=== PATIENT | female | born 1955 | race Caucasian/White ===

== ENCOUNTER 2016-11-05 03:23 | Inpatient (IN) | payer OTHER ==
[2016-11-05] VITALS (7 sets, daily range): BP systolic 118–176; BP diastolic 55–86
[~2016-11-05] VITALS: Ht 165.1 cm; Wt 71.7 kg
[~2016-11-05 03:23] MED LIST: APAP/HYDROCODON1 T46 PO; APAP/OXYCODONE1 TA2 PO; CEFEPIME2 GM IV; CEFEPIME2 GM PO; CUBICIN500 MG IV; DOXYCYCLINE HY100 M5 PO; GLUCOPHAGE850 MG PO; IBUPROFEN 200200 MG PO; KEFLEX125 MG/5 M PO; KEFLEX500 MG PO; LANTUS100 U/ML SC; METFORMIN850 MG PO; NOVOLOG MIX 70/33 ML SC; NOVOLOG1 UNIT/0.0 SC; NOVOLOG10 ML IV; PERCOCET 325 MG1 TA2 PO; PERCOCET 325 MG1 TA3 PO; PRAVACHOL40 MG PO; PRINIVIL20 MG PO; PRINIVIL5 MG PO; PROTONIX40 MG PO; SALINE NASAL M126 ML NS; TOPROL XL100 MG PO; TOPROL XL50 MG PO; ULTRAM50 MG PO; VANCOCIN1000 MG/25 IV; ZOFRAN4 MG PO; ZYVOX600 MG PO
[2016-11-05] MEDS ORDERED: TRAMADOL HCL50 MG PO ×2 (03:29→09:34)
[2016-11-05] MEDS ORDERED: MELOXICAM7.5 MG PO (03:30)
[2016-11-05] MEDS ORDERED: FENOFIBRATE160 MG PO (03:30)
[2016-11-05 04:09] LABS: BASO % 0.4 % (0.0-1.0); EOS # 0.1 10*3/uL (0.0-0.4); EOS % 1.6 % (1.0-4.0); HEMATOCRIT 40.2 % (37.0-47.0); HEMOGLOBIN 13.5 g/dl (12.0-16.0); LYMPH # 2.7 10*3/uL (1.3-4.4); LYMPH % 38.5 % (27.0-41.0); MEAN CELL VOLUME 88.7 fl (81.0-99.0); MEAN CORPUSCULAR HGB 29.8 pg (27.0-31.0); MEAN CORPUSCULAR HGB CONC 33.6 g/dl (33.0-37.0); MEAN PLATELET VOLUME 9.7 fl (9.6-12.3); MONO # 0.4 10*3/uL (0.1-1.0); MONO % 6.1 % (3.0-9.0); NEUT # 3.7 10*3/uL (2.3-7.9); NEUT % 53.3 % (47.0-73.0); PLATELET COUNT AUTOMATED 354 10*3/uL (130-400); RED BLOOD COUNT 4.53 10*6/uL (4.10-5.10); RED CELL DISTRI WIDTH 14.3 % (0-14.5); WHITE BLOOD COUNT 6.9 10*3/uL (4.8-10.8)
[2016-11-05 04:18] LABS: PROTHROMBIN TIME 10.2 SECONDS (9.0-12.4)
[2016-11-05 04:36] LABS: ALKALINE PHOSPHATASE 61 U/L (45-117); BILIRUBIN, TOTAL 0.2 mg/dl (0.2-1.0); BUN 36 mg/dl (7-24); C-REACTIVE PROTEIN < 0.29 MG/DL (0-0.3); CARBON DIOXIDE 26 mmol/L (21-32); CHLORIDE 102 mmol/L (98-107); EST GLOM FILT AFRICAN AMERICAN 36 ml/min; GLUCOSE 246 mg/dL (65-99); MAGNESIUM 2.2 mg/dL (1.5-2.1); POTASSIUM 4.2 mmol/L (3.5-5.1); SGOT/AST 13 IU/L (3-35); SGPT/ALT 19 U/L (12-78); SODIUM 139 mmol/L (136-145); TOTAL PROTEIN 8.6 gm/dL (6.4-8.2); TROPONIN I < 0.015 ng/ml (<0.045)
[2016-11-05] MEDS ORDERED: PROTONIX40 MG PO (09:34)
[2016-11-05] MEDS ORDERED: HYDR12.5C PO (09:35)
[2016-11-05 10:06] LABS: BILIRUBIN NEGATIVE (NEGATIVE); BLOOD NEGATIVE (NEGATIVE); CLARITY CLEAR (CLEAR); COLOR STRAW (YELLOW); GLUCOSE 2+ (NEGATIVE); KETONE NEGATIVE (NEGATIVE); LEUKO ESTERASE NEGATIVE (NEGATIVE); NITRITE NEGATIVE (NEGATIVE); PROTEIN NEGATIVE (NEGATIVE); UROBILINOGEN 0.2 E.U./dl (0.2-1.0)
[2016-11-05 10:27] LABS: EPITHELIAL CELLS 0-2; URINE REFLEX COMMENT NO (NO)
[2016-11-05 12:32] LABS: TROPONIN I < 0.015 ng/ml (<0.045)
[2016-11-06] VITALS: BP 118/62
[2016-11-06 04:00] VITALS: BP 120/62
[2016-11-06 06:46] LABS: BASO % 0.7 % (0.0-1.0); EOS # 0.1 10*3/uL (0.0-0.4); EOS % 2.2 % (1.0-4.0); HEMATOCRIT 35.8 % (37.0-47.0); HEMOGLOBIN 11.8 g/dl (12.0-16.0); LYMPH % 45.3 % (27.0-41.0); MEAN CELL VOLUME 89.9 fl (81.0-99.0); MEAN CORPUSCULAR HGB 29.6 pg (27.0-31.0); MEAN PLATELET VOLUME 9.6 fl (9.6-12.3); MONO # 0.3 10*3/uL (0.1-1.0); MONO % 5.6 % (3.0-9.0); NEUT # 2.1 10*3/uL (2.3-7.9); PLATELET COUNT AUTOMATED 299 10*3/uL (130-400); RED BLOOD COUNT 3.98 10*6/uL (4.10-5.10); RED CELL DISTRI WIDTH 14.1 % (0-14.5); WHITE BLOOD COUNT 4.5 10*3/uL (4.8-10.8)
[2016-11-06 07:31] LABS: PROTHROMBIN TIME 10.8 SECONDS (9.0-12.4)
[2016-11-06 07:33] LABS: ALBUMIN 3.4 gm/dl (3.1-4.5); BILIRUBIN, TOTAL 0.4 mg/dl (0.2-1.0); MAGNESIUM 1.7 mg/dL (1.5-2.1); PHOSPHOROUS 2.4 mg/dL (2.5-4.9); POTASSIUM 4.1 mmol/L (3.5-5.1); TOTAL PROTEIN 7.1 gm/dL (6.4-8.2)
[2016-11-06 08:04] LABS: FREE T4 0.83 ng/dl (0.76-1.46); THYROID STIM HORMONE (HS) 0.613 uIU/ml (0.358-4.75)
[2016-11-06 08:52] LABS: HEMOGLOBIN A1c 7.5 % (4.8-5.6)
[2016-11-06 10:49] LABS: FOLIC ACID 12.54 ng/mL (>5.38); VITAMIN D, 25-HYDROXY 12.3 ng/mL (30-100)
== END 2016-11-06 08:02 | disposition left against medical advice (07) | DRG 438 ==
LOC: ED 03:23 → 5E 05:50 → EDHOLD 05:50 → 5E 05:58
PROVIDERS: Emergency Medicine Emergency Medical Services; Family Medicine
DX: K85.90 Acute pancreatitis without necrosis or infection, unspecified (principal); N17.0 Acute kidney failure with tubular necrosis; E11.65 Type 2 diabetes mellitus with hyperglycemia; E83.41 Hypermagnesemia; I10 Essential (primary) hypertension; R00.0 Tachycardia, unspecified; E78.1 Pure hyperglyceridemia; Z53.21 Procedure and treatment not carried out due to patient leaving prior to being seen by health care provider; G89.29 Other chronic pain; F17.200 Nicotine dependence, unspecified, uncomplicated; Z98.51 Tubal ligation status; Z82.49 Family history of ischemic heart disease and other diseases of the circulatory system; Z90.49 Acquired absence of other specified parts of digestive tract; Z83.3 Family history of diabetes mellitus; Z80.9 Family history of malignant neoplasm, unspecified; Z88.6 Allergy status to analgesic agent; Z79.4 Long term (current) use of insulin; Z79.84 Long term (current) use of oral hypoglycemic drugs; Z79.899 Other long term (current) drug therapy; Z71.6 Tobacco abuse counseling

== ENCOUNTER 2016-12-03 09:07 | Emergency (ER) | payer OTHER ==
[~2016-12-03 09:07] MED LIST changes: +FENOFIBRATE160 MG PO; +HYDR12.5C PO; +MELOXICAM7.5 MG PO; +TRAMADOL HCL50 MG PO
[2016-12-03] MEDS ORDERED: PENICILLIN VK500 MG PO (09:13)
[2016-12-03] MEDS ORDERED: LIDOCAINE HCL100 M1 MM (09:13)
[2016-12-03] MEDS ORDERED: Peridex 473 ML473 ML PO (09:13)
== END 2016-12-03 11:07 | disposition home or self-care (01) ==
LOC: ED 09:07
DX: K02.9 Dental caries, unspecified (principal); R03.0 Elevated blood-pressure reading, without diagnosis of hypertension; F17.200 Nicotine dependence, unspecified, uncomplicated; E11.9 Type 2 diabetes mellitus without complications; I10 Essential (primary) hypertension; Z90.49 Acquired absence of other specified parts of digestive tract; Z88.6 Allergy status to analgesic agent; Z79.4 Long term (current) use of insulin; Z79.899 Other long term (current) drug therapy

== ENCOUNTER 2017-01-31 15:10 | Inpatient (IN) | payer OTHER ==
[~2017-01-31] VITALS: Ht 165.1 cm; Wt 65.8 kg
--- NOTE | ~2017-01-31 | O ---
[place], [place] OPERATIVE NOTE NAME: PRITESH SO UNIT #: [id number] ROOM: 426 DOCTOR: HEBER CONNORS DPM BIRTHDATE: [birth year] DOS: 02/02/2017 PREOPERATIVE DIAGNOSIS: Abscess. Possible osteomyelitis of the left plantar foot. POSTOPERATIVE DIAGNOSIS: Abscess. Possible osteomyelitis of the left plantar foot. Pending pathology. PROCEDURE: Incision and drainage of plantar left foot with bone biopsy. SURGEON: Heber Connors DPM EDGE STAINER MACHINE: None. ANESTHESIA: LMAC. BLOOD LOSS: Approximately 5 mL. PACKING: One inch plain packing. PROCEDURE IN DETAIL: The patient was brought to the operating room, placed in the operating table in supine position. Anesthesia was administered per Anesthesia Department. Local infiltration of 10 mL of 0.5% Marcaine plain was utilized for local block. The left foot was prepped and draped in usual aseptic manner. There was an ulceration noted to the plantar lateral midfoot. It was noted to track down to bone. A [place] elevator was utilized to follow the tracking of the abscess which was then incised down to bone with a 15 blade. The incision was approximately 6 cm in length. The necrotic nonviable tissue was debrided with tissue nippers. There was plantar flexed bone palpable consistent with fourth metatarsal base, lateral cuneiform and cuboid which radiographically showed evidence of breakdown consistent with Charcot arthropathy with plantar flexion and displacement. A Jamshidi needle was utilized to resect bone which was sent for bone biopsy and bone cultures including Gram stain, aerobic, anaerobic, acid fast and fungal cultures. The same was also performed with separate culture of the soft tissue. The area was further debrided with a rongeur to debride sharp edges of the bone and the necrotic nonviable tissue was also excised. Copious irrigation was performed with sterile saline. The area was packed with 1 inch plain packing with wet-to-dry dressing consisting of 4 x 4s, ABD pads, Kerlix and Ernst bandage. The patient will return to nursing unit after clearance by Anesthesia. Resume previous orders. Antibiotics per Infectious Disease and we will follow the patient tomorrow for followup. The patient tolerated the procedure and anesthesia well and left the OR with vital signs stable, neurovascular status intact. [place], [place] OPERATIVE NOTE NAME: PRITESH SO UNIT #: [id number] ROOM: 426 DOCTOR: HEBER CONNORS DPM BIRTHDATE: [birth year] HEBER CONNORS DPM CM:OPRECORD:OPERATIVE NOTE [phone] HEBER CONNORS DPM 02/03/1746 interface
--- NOTE | ~2017-01-31 | PR ---
[place], [place] PROGRESS NOTE [id number] UNIT #: [id number] ROOM: [facility] DOCTOR: DAYANA CONNORS DPM BIRTHDATE: [birth year] DOS: 02/04/2017 SUBJECTIVE: The patient was seen in followup post I and D of abscess, left foot. The patient is resting comfortably in bed, awake, alert and well oriented. The patient is having less pain to the foot. OBJECTIVE: The dressing is intact. No breakthrough bleeding. Evaluation and internal dressing reveals no further bleeding noted. The Gelfoam packing is intact. Cap refill time is less than one second to all digits of the left foot. ASSESSMENT: Postop left foot. PLAN: Dressing will be kept intact today and will be changed tomorrow by Dr. Montiel. Discussed with the patient upon discharge, we will set her up with Dr. Campa at the wound care center for possible hyperbaric oxygen treatment, wound management and I discussed with the patient, we need to offload her Charcot arthropathy deformity of the plantar foot. Therefore, the patient may need a cow creek or torch walker. I will discuss the case with Dr. Campa upon discharge. Antibiotics will be per infectious disease. DAYANA CONNORS DPM CM:SKYLAR [id number] DAYANA CONNORS DPM 02/04/17 1518 interface
--- NOTE | ~2017-01-31 | PR ---
[place], [place] PROGRESS NOTE NAME: PRITESH SO UNIT #: [id number] ROOM: [facility] DOCTOR: MOLLY DE SOUZA DPM BIRTHDATE: [birth year] DOS: 02/05/2017 SUBJECTIVE: The patient seen status post I and D of abscess, plantar left foot. The patient is a longstanding diabetic, has had multiple foot issues over the years, multiple surgeries. The patient has no complaints. OBJECTIVE: Dressing is taken down, but the packing is not removed. Minimal bleeding is noted on the dressing, but there is no active bleeding, no significant bleeding at this time. There is no surrounding edema or erythema. There is no drainage or malodor. Cap refill time is intact to all digits. ASSESSMENT: Postop left foot. PLAN: The dressing was changed today, kept the packing intact. Discussed with the patient is okay to be discharged from Podiatry standpoint. She will follow up at the wound care center with Dr. Campa for evaluation and treatment. Right now her foot is doing well. We will continue to see her while she is in-house and then she will follow up at the Wound Care Center on discharge. MOLLY DE SOUZA DPM CM:SKYLAR [id number] MOLLY DE SOUZA DPM 02/05/17 1306 interface
--- NOTE | ~2017-01-31 | CON ---
[place], [place] REPORT OF CONSULTATION NAME: PRITESH SO UNIT #: [id number] ROOM: 426 DOCTOR: DAYANA CONNORS DPM BIRTHDATE: [birth year] DOS: 02/01/2017 HISTORY OF PRESENT ILLNESS: The patient presents a 61-year-old female with chief complaint of an ulcer on the plantar aspect of the left foot. We have treated the patient multiple times over the years. She has had multiple foot infections previously. The patient states that over the past week, the pain increased in her foot and started to drain. The patient was subsequently admitted. PAST MEDICAL HISTORY: Acute kidney failure with tubular necrosis, acute osteomyelitis, left foot; Charcot foot secondary to diabetes; hyperkalemia; hyponatremia; protein-calorie malnutrition; moderate sepsis with acute organ dysfunction; vitamin B deficiency; pancreatitis; type 2 diabetes; hypertension; hyperglyceridemia; incidental lung nodule; tobacco abuse counseling. PAST SURGICAL HISTORY: Left foot, tubal ligation, appendectomy, tonsillectomy. SOCIAL HISTORY: Tobacco abuse. Denies illicit drug use or alcohol. FAMILY HISTORY: Mother had a history of hypertension, diabetes, and leukemia. Brother, diabetes and CAD. Son, cerebral palsy. ALLERGIES: IBUPROFEN. LOWER EXTREMITY EXAMINATION: Pedal pulses are palpable, but there is decreased hair growth. Decreased epicritic sensations bilateral. There is an ulceration to the plantar left foot with weeping ulceration noted. The ulceration is noted to track to bone. There appears to be no acute drainable abscess, but again, weeping and drainage is noted. The results of the patient's left foot MRI revealed small ulcerations central plantar aspect of the mid foot with subjacent sinus tract extending deeply to mid foot bones. There is relative intense reactive marrow edema involving the lateral cuneiform, adjacent cuboid and proximal fourth metatarsal suspicious for osteomyelitis involvement. There is advanced neuropathic changes of the mid foot noted consistent with Charcot arthropathy, diffuse nonspecific edema of the intrinsic foot musculature as well as subcutaneous edema. No discrete fluid collection to suggest abscess. ASSESSMENT: Osteomyelitis infection, left foot; possible underlying abscess; diabetes; diabetic neuropathy. PLAN: Evaluation and management. Discussed with the patient treatment options in detail. Recommended surgical incision and drainage with bone biopsy of the plantar left foot, which is scheduled for noon tomorrow. The patient will be n.p.o. after midnight. Order for Bactroban dressing. Also, consent for surgery. Discussed the advantages, disadvantages of the procedure. The patient is well aware of the risks and complications and the patient is aware she will undergo potentially 6 weeks of IV antibiotic treatment and we will also consult [place], [place] REPORT OF CONSULTATION NAME: PRITESH SO UNIT #: [id number] ROOM: 426 DOCTOR: DAYANA CONNORS DPM BIRTHDATE: [birth year] for postoperative wound management and possible hyperbaric oxygen treatment. DAYANA CONNORS DPM CM:CONSTR:REPORT OF CONSULTATION 1616 02/01/17 2320 interface
--- NOTE | ~2017-01-31 | PR ---
[place], [place] PROGRESS NOTE [facility]: [id number] UNIT #: [id number] ROOM: 401 DOCTOR: DAYANA CONNORS DPM BIRTHDATE: [birth year] DOS: 02/03/2017 SUBJECTIVE: The patient was seen post I and D of abscess, left plantar foot. OBJECTIVE: Upon removal of the dressing and packing, there were no signs of purulent drainage or foul odor; however, bleeding started with arterial flow and pumping. Pressure was applied multiple times along with topical thrombin applied and Gelfoam. The bleeding did not stop from a small artery, subsequently was sutured with 3-0 Vicryl in simple interrupted manner. The bleeding was noted to stop at that point. The patient had approximately 200cc of bleeding. Blood loss noted, however. ASSESSMENT: Postoperative left foot. PLAN: Evaluation and management. Suture was utilized to stop an arterial bleed at the end of postop wound after removal of the dressing. The area was packed with 4 x 4s, Kerlix, ABD and Ernst bandages. The patient became very well during the procedure and the rapid response team was called in. H and H is ordered and Internal Medicine is taking care the patient for possible vague reaction due to blood loss or hypoglycemia. The patient was stabilized before leaving the room and the patient will be seen tomorrow for postoperative followup. DAYANA CONNORS DPM CM:PNTRANS [id number] DAYANA CONNORS DPM 02/06/17 0636 interface
[~2017-01-31 15:10] MED LIST changes: +LIDOCAINE HCL100 M1 MM; +PENICILLIN VK500 MG PO; +Peridex 473 ML473 ML PO
[2017-01-31 15:15] VITALS: BP 127/77
[2017-01-31] MEDS ORDERED: TRAMADOL HCL50 MG PO (15:43)
[2017-01-31 15:59] LABS: BASO % 0.2 % (0.0-1.0); EOS % 0.1 % (1.0-4.0); HEMATOCRIT 38.3 % (37.0-47.0); HEMOGLOBIN 12.8 g/dl (12.0-16.0); LYMPH # 1.2 10*3/uL (1.3-4.4); LYMPH % 9.8 % (27.0-41.0); MEAN CELL VOLUME 89.3 fl (81.0-99.0); MEAN CORPUSCULAR HGB 29.8 pg (27.0-31.0); MEAN CORPUSCULAR HGB CONC 33.4 g/dl (33.0-37.0); MEAN PLATELET VOLUME 8.9 fl (9.6-12.3); MONO # 0.7 10*3/uL (0.1-1.0); MONO % 5.4 % (3.0-9.0); NEUT # 10.3 10*3/uL (2.3-7.9); NEUT % 84.2 % (47.0-73.0); PLATELET COUNT AUTOMATED 509 10*3/uL (130-400); RED BLOOD COUNT 4.29 10*6/uL (4.10-5.10); RED CELL DISTRI WIDTH 12.4 % (0-14.5); WHITE BLOOD COUNT 12.2 10*3/uL (4.8-10.8)
[2017-01-31 16:13] LABS: ALBUMIN 3.6 gm/dl (3.1-4.5); BILIRUBIN, TOTAL 0.3 mg/dl (0.2-1.0); POTASSIUM 5.3 mmol/L (3.5-5.1); TOTAL PROTEIN 9.4 gm/dL (6.4-8.2)
[2017-01-31 17:23] VITALS: BP 124/80
[2017-01-31 18:13] VITALS: BP 150/100
[2017-01-31 20:00] VITALS: BP 119/65
[2017-02-01] VITALS: BP 128/49
[2017-02-01 05:16] LABS: ALBUMIN 2.9 gm/dl (3.1-4.5); BILIRUBIN, TOTAL 0.4 mg/dl (0.2-1.0); MAGNESIUM 1.9 mg/dL (1.5-2.1); PHOSPHOROUS 3.3 mg/dL (2.5-4.9); POTASSIUM 4.5 mmol/L (3.5-5.1); TOTAL PROTEIN 7.9 gm/dL (6.4-8.2)
[2017-02-01 05:20] LABS: THYROID STIM HORMONE (HS) 0.677 uIU/ml (0.358-4.75)
[2017-02-01 06:07] LABS: BASO % 0.3 % (0.0-1.0); EOS # 0.1 10*3/uL (0.0-0.4); EOS % 0.9 % (1.0-4.0); HEMATOCRIT 35.8 % (37.0-47.0); HEMOGLOBIN 11.5 g/dl (12.0-16.0); LYMPH # 1.9 10*3/uL (1.3-4.4); LYMPH % 25.6 % (27.0-41.0); MEAN CELL VOLUME 91.1 fl (81.0-99.0); MEAN CORPUSCULAR HGB 29.3 pg (27.0-31.0); MEAN CORPUSCULAR HGB CONC 32.1 g/dl (33.0-37.0); MEAN PLATELET VOLUME 9.1 fl (9.6-12.3); MONO # 0.6 10*3/uL (0.1-1.0); MONO % 8.6 % (3.0-9.0); NEUT # 4.8 10*3/uL (2.3-7.9); NEUT % 64.3 % (47.0-73.0); PLATELET COUNT AUTOMATED 455 10*3/uL (130-400); RED BLOOD COUNT 3.93 10*6/uL (4.10-5.10); RED CELL DISTRI WIDTH 12.6 % (0-14.5); WHITE BLOOD COUNT 7.5 10*3/uL (4.8-10.8)
[2017-02-01 06:12] LABS: HEMOGLOBIN A1c 8.7 % (4.8-5.6)
[2017-02-01 06:18] LABS: PROTHROMBIN TIME 10.3 SECONDS (9.0-12.4)
[2017-02-01 06:47] LABS: FOLIC ACID > 24.00 ng/mL (>5.38)
[2017-02-01 08:00] VITALS: BP 116/53
[2017-02-01 12:00] VITALS: BP 133/52
[2017-02-01 16:00] VITALS: BP 128/86
[2017-02-01 18:29] LABS: BILIRUBIN NEGATIVE (NEGATIVE); BLOOD NEGATIVE (NEGATIVE); CLARITY CLEAR (CLEAR); COLOR YELLOW (YELLOW); GLUCOSE 2+ (NEGATIVE); KETONE NEGATIVE (NEGATIVE); LEUKO ESTERASE NEGATIVE (NEGATIVE); NITRITE NEGATIVE (NEGATIVE); PROTEIN NEGATIVE (NEGATIVE); UROBILINOGEN 0.2 E.U./dl (0.2-1.0)
[2017-02-01 18:59] LABS: RBC 0-2 rbc/hpf (0-2); URINE REFLEX COMMENT NO (NO); WBC 0-2 wbc/hpf (0-5)
[2017-02-01 20:00] VITALS: BP 109/52
[2017-02-02] VITALS (9 sets, daily range): BP systolic 101–151; BP diastolic 49–73
[2017-02-02 06:31] LABS: BASO % 0.2 % (0.0-1.0); EOS # 0.2 10*3/uL (0.0-0.4); EOS % 2.7 % (1.0-4.0); HEMATOCRIT 30.5 % (37.0-47.0); HEMOGLOBIN 10.1 g/dl (12.0-16.0); LYMPH # 2.2 10*3/uL (1.3-4.4); LYMPH % 39.3 % (27.0-41.0); MEAN CELL VOLUME 89.7 fl (81.0-99.0); MEAN CORPUSCULAR HGB 29.7 pg (27.0-31.0); MEAN CORPUSCULAR HGB CONC 33.1 g/dl (33.0-37.0); MEAN PLATELET VOLUME 8.7 fl (9.6-12.3); MONO # 0.4 10*3/uL (0.1-1.0); MONO % 7.9 % (3.0-9.0); NEUT # 2.8 10*3/uL (2.3-7.9); NEUT % 49.7 % (47.0-73.0); PLATELET COUNT AUTOMATED 356 10*3/uL (130-400); RED CELL DISTRI WIDTH 12.3 % (0-14.5); WHITE BLOOD COUNT 5.6 10*3/uL (4.8-10.8)
[2017-02-02 07:11] LABS: ALBUMIN 2.4 gm/dl (3.1-4.5); POTASSIUM 4.5 mmol/L (3.5-5.1)
[2017-02-02 07:15] LABS: BILIRUBIN, TOTAL 0.2 mg/dl (0.2-1.0)
[2017-02-03] VITALS (9 sets, daily range): BP systolic 79–138; BP diastolic 47–78
[2017-02-03 06:23] LABS: BASO % 0.2 % (0.0-1.0); EOS # 0.2 10*3/uL (0.0-0.4); EOS % 2.4 % (1.0-4.0); HEMATOCRIT 29.5 % (37.0-47.0); HEMOGLOBIN 9.5 g/dl (12.0-16.0); LYMPH # 2.1 10*3/uL (1.3-4.4); MEAN CELL VOLUME 89.4 fl (81.0-99.0); MEAN CORPUSCULAR HGB 28.8 pg (27.0-31.0); MEAN CORPUSCULAR HGB CONC 32.2 g/dl (33.0-37.0); MEAN PLATELET VOLUME 8.5 fl (9.6-12.3); MONO # 0.4 10*3/uL (0.1-1.0); MONO % 6.7 % (3.0-9.0); NEUT # 3.5 10*3/uL (2.3-7.9); NEUT % 56.2 % (47.0-73.0); PLATELET COUNT AUTOMATED 336 10*3/uL (130-400); RED CELL DISTRI WIDTH 12.1 % (0-14.5); WHITE BLOOD COUNT 6.1 10*3/uL (4.8-10.8)
[2017-02-03 06:56] LABS: ALBUMIN 2.4 gm/dl (3.1-4.5); BILIRUBIN, TOTAL 0.2 mg/dl (0.2-1.0); POTASSIUM 4.6 mmol/L (3.5-5.1); TOTAL PROTEIN 6.8 gm/dL (6.4-8.2)
[2017-02-03 11:39] LABS: BASO % 0.1 % (0.0-1.0); IG # 0.1 10*3/uL (0.0-0.1); RED CELL DISTRI WIDTH 12.2 % (0-14.5)
[2017-02-03 11:44] LABS: EOS # 0.1 10*3/uL (0.0-0.4); EOS % 1.4 % (1.0-4.0); LYMPH # 2.7 10*3/uL (1.3-4.4); LYMPH % 38.1 % (27.0-41.0); MEAN CORPUSCULAR HGB 29.9 pg (27.0-31.0); MEAN CORPUSCULAR HGB CONC 32.3 g/dl (33.0-37.0); MEAN PLATELET VOLUME 8.9 fl (9.6-12.3); MONO # 0.4 10*3/uL (0.1-1.0); MONO % 5.2 % (3.0-9.0); NEUT # 3.9 10*3/uL (2.3-7.9); NEUT % 54.5 % (47.0-73.0); PLATELET COUNT AUTOMATED 326 10*3/uL (130-400); RED BLOOD COUNT 2.14 10*6/uL (4.10-5.10); WHITE BLOOD COUNT 7.1 10*3/uL (4.8-10.8)
[2017-02-03 11:45] LABS: HEMATOCRIT 19.8 % (37.0-47.0); HEMOGLOBIN 6.4 g/dl (12.0-16.0); MEAN CELL VOLUME 92.5 fl (81.0-99.0)
[2017-02-03 16:46] LABS: HEMATOCRIT 28.4 % (37.0-47.0); HEMOGLOBIN 9.4 g/dl (12.0-16.0)
[2017-02-04] VITALS: BP 131/73
[2017-02-04 04:00] VITALS: BP 131/77
[2017-02-04 06:20] LABS: BASO % 0.4 % (0.0-1.0); EOS # 0.1 10*3/uL (0.0-0.4); HEMATOCRIT 24.3 % (37.0-47.0); HEMOGLOBIN 8.1 g/dl (12.0-16.0); LYMPH # 2.5 10*3/uL (1.3-4.4); LYMPH % 44.5 % (27.0-41.0); MEAN CORPUSCULAR HGB 29.2 pg (27.0-31.0); MEAN CORPUSCULAR HGB CONC 33.3 g/dl (33.0-37.0); MEAN PLATELET VOLUME 9.1 fl (9.6-12.3); MONO # 0.4 10*3/uL (0.1-1.0); MONO % 6.4 % (3.0-9.0); NEUT # 2.6 10*3/uL (2.3-7.9); PLATELET COUNT AUTOMATED 276 10*3/uL (130-400); RED BLOOD COUNT 2.77 10*6/uL (4.10-5.10); RED CELL DISTRI WIDTH 13.1 % (0-14.5); WHITE BLOOD COUNT 5.6 10*3/uL (4.8-10.8)
[2017-02-04 06:29] LABS: MEAN CELL VOLUME 87.7 fl (81.0-99.0)
[2017-02-04 06:43] LABS: POTASSIUM 4.5 mmol/L (3.5-5.1)
[2017-02-04 08:00] VITALS: BP 142/89
[2017-02-04 12:00] VITALS: BP 142/89
[2017-02-04 16:03] VITALS: BP 130/76
[2017-02-04 20:00] VITALS: BP 123/80
[2017-02-05] VITALS: BP 130/59
[2017-02-05 04:00] VITALS: BP 125/76
[2017-02-05 06:24] LABS: BASO % 0.3 % (0.0-1.0); EOS # 0.1 10*3/uL (0.0-0.4); EOS % 2.5 % (1.0-4.0); HEMATOCRIT 24.8 % (37.0-47.0); HEMOGLOBIN 8.3 g/dl (12.0-16.0); LYMPH # 1.7 10*3/uL (1.3-4.4); LYMPH % 42.2 % (27.0-41.0); MEAN CELL VOLUME 87.6 fl (81.0-99.0); MEAN CORPUSCULAR HGB 29.3 pg (27.0-31.0); MEAN CORPUSCULAR HGB CONC 33.5 g/dl (33.0-37.0); MEAN PLATELET VOLUME 8.8 fl (9.6-12.3); MONO # 0.4 10*3/uL (0.1-1.0); MONO % 8.8 % (3.0-9.0); NEUT # 1.8 10*3/uL (2.3-7.9); NEUT % 45.4 % (47.0-73.0); PLATELET COUNT AUTOMATED 286 10*3/uL (130-400); RED BLOOD COUNT 2.83 10*6/uL (4.10-5.10); RED CELL DISTRI WIDTH 12.8 % (0-14.5)
[2017-02-05 08:00] VITALS: BP 110/59
[2017-02-05 12:00] VITALS: BP 149/74
[2017-02-05] MEDS ORDERED: TEFLARO600 MG IV (12:22)
[2017-02-05] MEDS ORDERED: D-1000 185 MG-11 TAB PO (13:26)
[2017-02-05 16:00] VITALS: BP 1126/69
== END 2017-02-05 18:21 | disposition home health service (06) | DRG 853 ==
LOC: ED 15:10 → ICCU 17:15 → 4E 17:15 → EDHOLD 17:15 → 4E 17:25 → ICCU 02-03 11:26 → 4E 02-05 14:36
PROVIDERS: Family Medicine Adult Medicine; Hospitalist; Internal Medicine; Internal Medicine Nephrology; Physician Assistant
PROC: 02HV33Z Insertion of Infusion Device into Superior Vena Cava, Percutaneous Approach (ICD-10-PCS; principal; 2017-02-01)
PROC: 0QBM0ZX Excision of Left Tarsal, Open Approach, Diagnostic (ICD-10-PCS; 2017-02-02)
DX: A41.9 Sepsis, unspecified organism (principal); N17.0 Acute kidney failure with tubular necrosis; E43 Unspecified severe protein-calorie malnutrition; E87.1 Hypo-osmolality and hyponatremia; M86.172 Other acute osteomyelitis, left ankle and foot; L02.612 Cutaneous abscess of left foot; E87.5 Hyperkalemia; E11.621 Type 2 diabetes mellitus with foot ulcer; E78.1 Pure hyperglyceridemia; I10 Essential (primary) hypertension; F17.200 Nicotine dependence, unspecified, uncomplicated; L97.529 Non-pressure chronic ulcer of other part of left foot with unspecified severity; E11.69 Type 2 diabetes mellitus with other specified complication; R65.20 Severe sepsis without septic shock; E11.610 Type 2 diabetes mellitus with diabetic neuropathic arthropathy; E55.9 Vitamin D deficiency, unspecified; Z79.4 Long term (current) use of insulin; Z86.14 Personal history of Methicillin resistant Staphylococcus aureus infection; Z88.6 Allergy status to analgesic agent; Z90.49 Acquired absence of other specified parts of digestive tract; Z82.3 Family history of stroke; Z98.51 Tubal ligation status; Z80.9 Family history of malignant neoplasm, unspecified; Z82.49 Family history of ischemic heart disease and other diseases of the circulatory system; Z83.3 Family history of diabetes mellitus; Z79.899 Other long term (current) drug therapy; Z68.24 Body mass index [BMI] 24.0-24.9, adult

== ENCOUNTER 2017-03-02 11:26 | Inpatient (IN) | payer OTHER ==
[~2017-03-02] VITALS: Ht 165.1 cm; Wt 65.0 kg
--- NOTE | ~2017-03-02 | PR ---
[place], [place] PROGRESS NOTE NAME: PRITESH SO UNIT #: [id number] ROOM: 422 DOCTOR: CLIVE ALARCON MD BIRTHDATE: [birth year] DOS: 03/06/2017 SUBJECTIVE: The patient is seen in followup of acute kidney injury. She is doing well. She is improving overall. No chest pain, shortness of breath or other review of systems. Continues to get wound care for her foot. OBJECTIVE: VITAL SIGNS: Temperature 98.2, pulse 61, respiratory rate 20, blood pressure 141/70. GENERAL: Awake, alert and oriented, no acute distress, pleasant mood and affect. Speech is clear and cogent. LUNGS: Clear bilaterally. No audible rales, rhonchi or wheeze. CARDIOVASCULAR: Regular rate. No audible rub. ABDOMEN: Soft, nontender, nondistended. EXTREMITIES: Left lower extremity is wrapped without other cyanosis or clubbing. LABORATORIES AND DIAGNOSTICS: Sodium 139; potassium 4.0; chloride 110; bicarbonate 23; BUN 15; creatinine 1.28, down from 1.52; white blood cell count 4.3; hemoglobin 9.4; platelets 303. ASSESSMENT AND PLAN: 1. Acute kidney injury, improving. No further IV fluids are necessary at this time. 2. Volume and hypertension. Blood pressures are acceptably controlled. 3. Electrolytes and acid bases, hyponatremia is improved. Potassium was normal. 4. Likely chronic kidney disease 3 at baseline. Continue to follow and avoid nephrotoxins. 5. Osteomyelitis of the foot. Continue wound care and podiatry vascular followup. CLIVE ALARCON MD CM:PNTRANS [phone] CLIVE ALARCON MD 03/10/17 5523 interface
--- NOTE | ~2017-03-02 | CON ---
[place], [place] REPORT OF CONSULTATION NAME: PRITESH SO UNIT #: [id number] ROOM: 422 DOCTOR: ZENA LENZ MD BIRTHDATE: [birth year] DOS: 03/03/2017 NEPHROLOGY CONSULTATION REASON FOR CONSULTATION: Acute on chronic kidney disease. HISTORY OF PRESENT ILLNESS: This is a 61-year-old female with past medical history of diabetes, Charcot foot, hypertension and what appears to be chronic kidney disease. The patient has been seen by our service a few times for evaluation of her renal dysfunction. She has had fluctuating creatinine levels and acute kidney injury in the past. Her true baseline creatinine is not quite clear. Earlier this month, she had creatinine levels noted to be over 3 and recent creatinine here in the hospital have been over 2. She recently was discharged from the hospital a few weeks ago and had been receiving IV antibiotics for osteomyelitis of the left foot. She developed worsening pain in the left foot which brought her back to the hospital. She was started on broad-spectrum antibiotics once again and actually received a dose of Toradol it seems. She denied shortness of breath, fevers, chills or night sweats. She denied diarrhea. She admitted to 1 episode of nausea and vomiting today. She has been started on fluids and her creatinine levels have been fairly stable. The patient reports to me she does not follow with a tool machine setup operator. She reported that she had been on heavy NSAIDs in the past, but had stopped taking them recently due to concerns about her kidney function. She reports she has had diabetes likely for a number of years, but was only diagnosed with the disease several years ago. She has a very strong family history of diabetes and also reported to me that she had relatives that had kidney disease including the need for dialysis. ALLERGIES: LISTED TO VANCOMYCIN and MOTRIN. HOME MEDICATIONS: Included vitamin D, fenofibrate, insulin, lisinopril, hydrochlorothiazide, metoprolol, multivitamin, tramadol. PAST MEDICAL HISTORY: 1. Chronic kidney disease as stated above with a history of acute kidney injury. 2. Osteomyelitis of the left foot. 3. Anemia. 4. Diabetes. 5. History of pancreatitis. 6. Hypertension. 7. Hyperlipidemia. 8. Long nodule. 9. Vitamin D deficiency. 10. Tubal ligation. 11. Appendectomy. 12. Tonsillectomy. FAMILY HISTORY: Positive for diabetes, coronary artery disease, hypertension and chronic kidney disease as noted above. [place], [place] REPORT OF CONSULTATION NAME: PRITESH SO UNIT #: [id number] ROOM: 422 DOCTOR: ZENA LENZ MD BIRTHDATE: [birth year] SOCIAL HISTORY: No current alcohol or illicit drugs. She does have a history of tobacco abuse. REVIEW OF SYSTEMS: As per HPI, otherwise a 10-point review of systems was reviewed and was negative. PHYSICAL EXAMINATION: VITAL SIGNS: Temperature 98.2, pulse 76, respiratory rate 20, blood pressure 96/65. GENERAL: She is alert, awake, oriented x 3, no acute distress. HEENT: Shows no JVD. Sclerae are anicteric. Mucous membranes are moist. Oropharynx is clear. NECK: Supple. Trachea was midline. There is no neck lymphadenopathy. There is no thyromegaly. LUNGS: Have diminished breath sounds. No wheeze. There are no crackles. She is not using accessory muscles of respiration. HEART: Normal S1, S2. No rub, no thrill, no gallop. ABDOMEN: Soft, nontender. There is no organomegaly or rigidity. There is no guarding. There is no CVA tenderness. EXTREMITIES: Had no edema. There is no lower extremity lymphadenopathy. Distal pulses were present. SKIN: Showed no overt rash. There was no petechiae or purpura. Skin temperature warm. NEUROLOGIC: She is awake. She is alert and following commands. Cranial nerves are intact. LABORATORY DATA: Hemoglobin 10.4, white count of 4.2, platelets of 269. BUN 39, creatinine 2.26, glucose 111, sodium 134, potassium 5.1, CO2 of 25, calcium 8.5, phosphorus of 3.4, magnesium 2.4, albumin of 2.9. IMPRESSION: 1. Acute on chronic kidney disease, likely related to prerenal factors. The patient's true baseline creatinine is not quite clear. I suspect she has underlying chronic kidney disease related to diabetic nephropathy with possible element of nephrosclerosis and/or analgesic nephropathy. 2. Osteomyelitis of the foot with Charcot foot. 3. Anemia. 4. History of diabetes mellitus. 5. History of hyperlipidemia. PLAN: 1. IV fluids for now. 2. Dose meds and antibiotics to current creatinine clearance. 3. We will obtain urinalysis. Acute interstitial nephritis is a possibility, although this seems less likely. We will obtain a urinalysis for pyuria. 4. We will obtain an intact parathyroid hormone level. 5. A renal ultrasound will be ordered. 6. Avoid nephrotoxic agents. Avoid NSAIDs. [place], [place] REPORT OF CONSULTATION NAME: PRITESH SO UNIT #: [id number] ROOM: 422 DOCTOR: ZENA LENZ MD BIRTHDATE: [birth year] Thank you for this consultation. We will follow with you. ZENA LENZ MD CM:CONSTR:REPORT OF CONSULTATION 1501 03/03/17 2203 interface
--- NOTE | ~2017-03-02 | PR ---
[place], [place] PROGRESS NOTE NAME: PRITESH SO UNIT #: [id number] ROOM: 422 DOCTOR: CLIVE ALARCON MD BIRTHDATE: [birth year] DOS: SUBJECTIVE: The patient was seen in followup of acute on chronic kidney injury. The patient is otherwise without complaints, tolerating antibiotics well. PHYSICAL EXAMINATION: VITAL SIGNS: Temperature 97.6, 62, 19, 143/74, 94% on room air. GENERAL: Awake, alert, oriented, lying in bed with ____ at her side. She is stroking it while I am talking to her. HEAD AND NECK: Sclerae are anicteric. Oropharynx is clear. Mucous membranes are moist. Neck veins are not distended. LUNGS: Clear bilaterally. No audible rales, rhonchi or wheeze. CARDIOVASCULAR: Regular rate. No audible rub. ABDOMEN: Soft, nontender, nondistended. No rebound. No guarding. EXTREMITIES: Left leg is dressed and wrapped. No significant clubbing or edema is noted. LABORATORY DATA AND DIAGNOSTICS: White blood cell count 3.9, hemoglobin 9.9, platelets 291. Sodium 139, potassium 4.5, chloride 109, bicarbonate 25, BUN 17, creatinine 1.52, down from 1.66 and 2.26, glucose 98, calcium 8.5. She underwent debridement of her plantar ulcer today. She also underwent duplex, which was negative for DVT in the lower extremities and/ ultrasound of the kidneys showing right kidney of 9.5 cm, left kidney of 9.6 cm with normal echotexture. No hydronephrosis or masses or stones. ASSESSMENT AND PLAN: 1. Acute kidney injury. This is improving, likely some baseline chronic kidney disease is noted. Etiology is likely prerenal with exacerbation from nonsteroidal anti-inflammatory drugs, antibiotics and nephrosclerosis. Continue supportive care, avoidance of nephrotoxic medications and NSAIDs. Ultrasound is unremarkable. 2. Osteomyelitis with Charcot foot. Continue wound care and Podiatry followup. 3. Anemia. Monitor for any acute losses. 4. Diabetes and hyperlipidemia, stable. 5. Hypertension is acceptable control. 6. Vitamin D deficiency, on replacement. Intact PTH is 50.3, which is acceptable for her level of chronic kidney disease. [place], [place] PROGRESS NOTE NAME: PRITESH SO UNIT #: [id number] ROOM: 422 DOCTOR: CLIVE ALARCON MD BIRTHDATE: [birth year] CLIVE ALARCON MD CM:PNTRANS [phone] CLIVE ALARCON MD 03/05/17 1829 interface
--- NOTE | ~2017-03-02 | O ---
[place], [place] OPERATIVE NOTE NAME: PRITESH SO UNIT #: [id number] ROOM: 422 DOCTOR: MOLLY DE SOUZA DPM BIRTHDATE: [birth year] DOS: 03/05/2017 SURGEON: Molly De Souza DPM PREOPERATIVE DIAGNOSIS: Infected ulcer, plantar left foot. POSTOPERATIVE DIAGNOSIS: Infected ulcer, plantar left foot. PROCEDURE: Debridement of ulceration, plantar left foot with cultures. ANESTHESIA: LMAC. INJECTABLES: 10 mL of 0.5% Marcaine plain. ESTIMATED BLOOD LOSS: About 3 mL. COMPLICATIONS: None. DESCRIPTION OF PROCEDURE: After appropriate preoperative evaluation, the patient was brought in the OR and placed on the OR table in a supine position. Attention was directed to the plantar surface of the left foot where there was noted be a fairly large ulceration, plantar cuboid area. Anesthesia was then administered per anesthesia record. Next, a total of 10 mL of 0.5% Marcaine plain was injected in field block fashion around the plantar left foot wound. The area was then prepped and draped in usual sterile manner. Left foot was lowered to the surgical field. Attention was directed to the plantar left cuboid where there was noted to be about a 5 cm ulceration. This went down into and through subcutaneous tissue to the level of muscle. There was some mild surrounding edema and erythema with some minimal drainage. Next, using a rongeur as well as a 15 blade and pickup, the wound was sharply debrided, sharp excisional debridement was done down to and through subcutaneous tissue to the level of muscle to remove nonviable tissue. No bone was visible or palpable at this time. Cultures were then done and will be sent for gram-stain culture and sensitivity with ____. Next, using a pulse financial administrative assistant, approximately 3 liters of normal saline was irrigated through the wound. Once this was done, the wound was very clean and granular, any bleeders were bovied as necessary. No remaining signs of infection were noted. A 0.5 inch plain Nu Gauze packing was packed in the wound, followed by 4 x 4s, ABD, Kerlix and Ernst wrap. The patient tolerated procedure and anesthesia well and left the OR with vital signs stable and intact and transferred to the recovery room. She will be followed tomorrow for reevaluation. Most likely a wound VAC for that foot and then she will follow up at the wound care center on discharge. [place], [place] OPERATIVE NOTE NAME: PRITESH SO UNIT #: [id number] ROOM: 422 DOCTOR: MOLLY DE SOUZA DPM BIRTHDATE: [birth year] MOLLY DE SOUZA DPM CM:OPRECORD:OPERATIVE NOTE [id number] MOLLY DE SOUZA DPM 03/05/17 1338 interface
--- NOTE | ~2017-03-02 | CON ---
[place], [place] REPORT OF CONSULTATION NAME: PRITESH SO UNIT #: [id number] ROOM: 422 DOCTOR: DAYANA CONNORS DPM BIRTHDATE: [birth year] DOS: 03/02/2017 SUBJECTIVE: The patient is a 61-year-old female with return of pain in her left foot. The patient had a surgical intervention performed, but did not follow up at our office or the wound care center, which was scheduled with Dr. Campa. The patient was only on 3 weeks of IV antibiotics and she did not follow with infectious disease either. The patient admits that she did not follow with any doctor and is aware of the potential loss of limb. PAST MEDICAL HISTORY: Acute osteomyelitis of the left foot, blood loss anemia, Charcot foot, diabetes, chronic kidney disease stage 3, type 2 diabetes, history of pancreatitis, hypertension, hypertriglyceridemia, incidental lung nodule, vitamin D deficiency. PAST SURGICAL HISTORY: Multiple surgeries, left foot; history of tubal ligation; appendectomy; tonsillectomy. SOCIAL HISTORY: Denies alcohol, illicit drug use, history of tobacco abuse. FAMILY HISTORY: Mother leukemia, hypertension, diabetes. Brother diabetes, CAD. Son cerebral palsy. ALLERGIES: IBUPROFEN, VANCOMYCIN. LOWER EXTREMITY EXAMINATION: Pedal pulses palpable, decreased epicritic sensations, pes planus of the left foot. There is an ulceration to the plantar aspect of the left foot from previous incision and drainage site. The incision has filled in substantially from previous exam. There is scant amount of serous drainage noted. No signs of deep abscess, minimal erythema, no edema, tenderness of the foot noted. The patient is afebrile. LABORATORY DATA: Her WBC is 6.1. Lactic acid baseline is 1.0. Results of the radiographs of the left foot were consistent with ulcer, plantar margin of the mid foot with lucency involving the subjacent cuboid bone concerning for osteomyelitis, chronic Charcot arthropathy noted. The patient's biopsy was consistent with bone biopsy from last admission. ASSESSMENT: Chronic osteomyelitis, left foot; ulceration, left foot; diabetes; diabetic neuropathy. PLAN: Evaluation and management discussed with the patient. She is at extreme high risk for limb loss due to her continued noncompliance. Discussed with the patient she did not follow with our office or the wound care center or with infectious disease and she is at extreme risk to lose her foot or her leg if she is not complying going forward. I do not feel that patient needs an emergency incision and drainage as no acute abscess was identified. The patient will be subsequently scheduled for Sunday with Dr. Montiel to perform debridement with possible additional bone debridement and biopsy of the left foot. Culture was ordered of the left foot. Antibiotics per infectious disease, ordered silver alginate and gauze dressing to be changed daily and ordered CBC with diff, sed [place], [place] REPORT OF CONSULTATION NAME: PRITESH SO UNIT #: [id number] ROOM: [facility] DOCTOR: DAYANA CONNORS DPM BIRTHDATE: [birth year] rate, C-reactive protein for the morning. I will see the patient tomorrow morning for continued care and followup. DAYANA CONNORS DPM CM:CONSTR:REPORT OF CONSULTATION 1805 03/03/17 0718 interface
--- NOTE | ~2017-03-02 | CON ---
[place], [place] REPORT OF CONSULTATION NAME: PRITESH SO UNIT #: [id number] ROOM: 422 DOCTOR: LILLIAN MARKHAM MD BIRTHDATE: [birth year] DOS: 03/03/2017 CHIEF COMPLAINT: "I am just so depressed, I cry every day." HISTORY OF PRESENT ILLNESS: This is a 61-year-old white female who was brought in to the Emergency Room at [facility] due to severe left foot pain secondary to surgery and osteomyelitis. From a psychiatric standpoint, the patient reports that on December 08, her son who had cerebral palsy a very horrible , following that because he was wheelchair bound and was in [employer] housing and they no longer qualified for it, she was evicted from her home of 20 years. She reports that she has been depressed now for the last several months with crying spells daily. She notes poor sleep with difficulty falling asleep, sleep continuity disturbance, tripe cooker awakening, anergia, anhedonia, hopeless, helpless feelings, crying spells and inability to cope. She feels that life is over because she has lost her son. She is willing; however, to consider medication management and I also discussed briefly the possibility of going to the psychiatric unit. PAST MEDICAL HISTORY: Remarkable for acute osteomyelitis of her left foot, anemia, diabetes, chronic kidney disease stage 3, diabetes type 2, pancreatitis, hypertension, hyperlipidemia, and vitamin D deficiency. MENTAL STATUS: She is alert and oriented. Mood is overwhelmingly depressed and she sobbed hysterically throughout the interview. She endorses multiple neurovegetative symptoms. There is no hypomania or lara. There are no auditory or visual hallucinations, delusions or paranoia. Memory is intact. DIAGNOSIS: Major depression, recurrent, severe. PLAN: I will go ahead and start her on Cymbalta 30 mg a day and rapidly titrate this upward. This should not only help with the depression, but it should also impact positively on her pain control. I would suggest consulting Dr. Victor Manuel Mancilla for counseling services and once she is medically stable, would consider a psychiatric admission on the [facility]. LILLIAN MARKHAM MD CM:CONSTR:REPORT OF CONSULTATION 1200 03/03/17 1530 interface
--- NOTE | ~2017-03-02 | PR ---
[place], [place] PROGRESS NOTE NAME: PRITESH SO UNIT #: [id number] ROOM: 422 DOCTOR: DAYANA CONNORS DPM BIRTHDATE: [birth year] DOS: 03/03/2017 SUBJECTIVE: The patient presents resting in bed, stating she has decreased pain in the foot does, however, have pain to her left leg. She states the left foot is definitely not as painful as it was yesterday. OBJECTIVE: Evaluation of the wound reveals scant amount of serous seepage still noted. No signs of purulent drainage or foul odor. No signs of definitive abscess. Ulceration is still open to bone level. ASSESSMENT: Chronic osteomyelitis, left foot; Charcot arthropathy; diabetic ulceration. PLAN: Evaluation and management. Ordered venous Doppler to rule out DVT of the left leg. Discussed with patient the surgical procedure to be preformed Sunday by Dr. Montiel at noon, consisting of debridement with debridement of chronic osteomyelitis, bone, possible biopsy, possible I and D. Discussed again with the patient she needs to maintain compliance as she is at high risk for limb loss. The patient understands this. We will continue antibiotics per Infectious Disease. The patient will be n.p.o. after midnight Sunday night for surgical correction to be performed Sunday at noon by Dr. Montiel. DAYANA CONNORS DPM CM:SKYLAR [id number] DAYANA CONNORS DPM 03/06/17 0733 interface
--- NOTE | ~2017-03-02 | PR ---
[place], [place] PROGRESS NOTE NAME: PRITESH SO UNIT #: [id number] ROOM: 422 DOCTOR: DAYANA CONNORS DPM BIRTHDATE: [birth year] DOS: 03/06/2017 SUBJECTIVE: The patient presents postop day 1, I and D abscess, plantar aspect of left foot. The patient still has some discomfort, but otherwise improving. OBJECTIVE: Upon removal of the dressing and packing, there are no signs of purulent drainage or foul odor. The wound is clean and void of all necrotic nonviable tissue, granulating well at this time. ASSESSMENT: Chronic osteomyelitis, diabetic ulceration with infection, left foot. PLAN: Change dressing and packing consisting of half inch plain packing, wet to dry dressing was applied and is to continue b.i.d. The patient can be discharged from podiatry standpoint. Continue antibiotics per infectious disease. The patient will be set up for possible wound VAC therapy and hyperbaric oxygen at the wound care center upon discharge. DAYANA CONNORS DPM CM:SKYLAR [id number] DAYANA CONNORS DPM 03/06/17 2259 interface
[~2017-03-02 11:26] MED LIST changes: +D-1000 185 MG-11 TAB PO; +TEFLARO600 MG IV
[2017-03-02 11:48] VITALS: BP 142/70
--- NOTE | 2017-03-02 11:56 | NUR ---
ULCER ON BOTTOM OF HER LEFT FOOT HAS EVIDENCE OF YELLOW-GREEN DRAINAGE WHICH HAS SEEPED THROUGH SEVERAL LAYERS OF DRESSING MATERIAL AND IS STUCK DESPITE SOAKING FOR 10 MINUTES. LEFT TO SOAK FOR NOW, WILL REASSESS. DESPTE THIS, THERE DOESN'T APPEAR TO A GREAT AMOUNT OF DRAINAGE AND THE WOUND BORDERS WHICH ARE VISIBLE ARE PINK AND HEALING. PT'S MAIN COMPLAINT IS SEVERE PAIN.
[2017-03-02 12:27] LABS: MEAN CELL VOLUME 87.8 fl (81.0-99.0); MEAN CORPUSCULAR HGB 29.3 pg (27.0-31.0); MEAN CORPUSCULAR HGB CONC 33.3 g/dl (33.0-37.0); MEAN PLATELET VOLUME 9.3 fl (9.6-12.3); PLATELET COUNT AUTOMATED 368 10*3/uL (130-400); RED CELL DISTRI WIDTH 13.3 % (0-14.5); WHITE BLOOD COUNT 6.1 10*3/uL (4.8-10.8)
[2017-03-02 12:35] LABS: ALBUMIN 3.7 gm/dl (3.1-4.5); CREATININE 2.15 mg/dL (0.55-1.02); TOTAL PROTEIN 9.5 gm/dL (6.4-8.2)
[2017-03-02 12:40] LABS: ATYPICAL LYMPHS 2 % (0-0); PLATELET SUFFICIENCY NORMAL (NORMAL); TOTAL CELLS COUNTED 100 #CELLS
--- NOTE | 2017-03-02 13:20 | NUR ---
LINEAR POST SURGICAL INCISION/ULCER TO BOTTOM OF FOOT IS NOW VISUALIZED AND IS APROXIMATELY 3CM LONG AND WITH SCANT DRAINAGE, NO ODOR.
--- NOTE | 2017-03-02 13:22 | NUR ---
PAIN SLIGHTLY IMPROVED WITH TYLENOL DOSING. ADMISSION PENDING.
--- NOTE | 2017-03-02 13:37 | NUR ---
VANCOMYCIN AND SALINE INFUSING AT TIME OF ADMISSION.
[2017-03-02 13:40] VITALS: BP 136/70
--- NOTE | 2017-03-02 13:47 | NUR ---
PT NOW DEVELOPS MILD NAUSEA AND SEVERE ITCHING ACROSS TORSO WELL THE NORMAL REDDENED FACE AND NECK AREA FROM THE VANCOMYCIN INFUSION. PT STATES THE ITCHING AND NAUSEA ARE INTOLERABLE, REQUESTS VANCOMYCIN BE ADDED TO HER ALLERGY LIST. VANCO DOSE STOPPED. PROVIDER MADE AWARE.
--- NOTE | 2017-03-02 13:59 | NUR ---
PROVIDER MADE AWARE OF POSSIBLE VANCOMYCIN RELATED ADVERSE RXN OF SEVERE ITCHING AND NAUSEA. NEW ORDERS FOR ZOFRAN AND BENEDRYL ORDERED AND TO RESTART VANCOMYCIN. PROVIDER SPOKE WITH PT ABOUT THIS.
--- NOTE | 2017-03-02 14:24 | NUR ---
ITCHING AND NAUSEA HAVE RESOLVED WITH BENEDRYL AND ZOFRAN DOSING, VANCOMYCIN HAS BEEN REINITIATED. THIS INFORMATION WAS PROVIDED IN NURSE REPORT TO IMC AND PT LEAVES FLOOR NOW WITH SALINE AND VANCOMYCIN INFUSING.
--- NOTE | 2017-03-02 14:30 | NUR ---
A 61, admitted to , under the services of TRACY Pond DO with a diagnosis of ACUTE KIDNEY INJURY Chief complaint is FOOT PAIN. Patient arrived via stretcher from ER. Monitor applied. Initial assessment completed. Vital signs taken and recorded. TRACY POND DO notified of admission to the unit. Orders received. See assessment for past medical history, medications and allergies. Patient and/or family oriented to unit. [facility] visitation policy reviewed. Clothing/patient valuable form completed. GULSHAN TEAGUE
[2017-03-02 14:50] VITALS: BP 123/99
[2017-03-02 16:00] VITALS: BP 128/86
[2017-03-02] MEDS ORDERED: ZESTORETIC 20-1 EACH PO (16:05)
[2017-03-02] MEDS ORDERED: MULTILEX-T-M W1 EACH PO (16:07)
[2017-03-02] MEDS ORDERED: VITAMIN D31000 UNI1 PO (16:10)
--- NOTE | 2017-03-02 16:41 | NUR ---
DR CONNORS/[facility] UPDATED ON NEW CONSULTS
[2017-03-02 20:00] VITALS: BP 97/55
--- NOTE | 2017-03-02 20:42 | NUR ---
PATIENT LYING IN BED PATIENT GIVEN MORPHINE FOR FOR LEFT FOOT PAIN. PATIENT UPSET STATING SHE IS HOMLESS AND SHE FEELS LIKE EVERYTHING IN HER LIFE JUST KEEPS GETTING WORSE. AND SHE NEEDS A PLACE TO LIVE BUT SHE WILL NOT LIVE IN A [place].
--- NOTE | 2017-03-02 21:13 | NUR ---
PATIENT STATED THAT AFTER MORPHINE WAS GIVEN. PATIENT WAS STILL HAVING PAIN AN HOUR LATER IN HER LEFT FOOT 5/10. PATIENT WAS THEN GIVEN NORCO FOR BREAK THROUGH PAIN.
--- NOTE | 2017-03-02 22:13 | NUR ---
PATIENT STATED THAT PAIN MEDICATION HAS BEEN EFFECTIVE. PATIENT STATED THAT PAIN IS NOW 2/10.
--- NOTE | 2017-03-02 23:01 | NUR ---
PATIENT GIVEN RESTORIL TO HELP HER SLEEP.
--- NOTE | 2017-03-02 23:29 | NUR ---
PATIENT REFUSED 2200 HEPARIN. PATIENT WAS EDUCATED ON WHY AND WHAT HEPARIN IS USED FOR. PATIENT STILL REFUSED.
[2017-03-03] VITALS: BP 111/54; BP 90/69
[2017-03-03 06:30] LABS: HEMATOCRIT 31.8 % (37.0-47.0); HEMOGLOBIN 10.4 g/dl (12.0-16.0); MEAN CELL VOLUME 88.1 fl (81.0-99.0); MEAN CORPUSCULAR HGB 28.8 pg (27.0-31.0); MEAN CORPUSCULAR HGB CONC 32.7 g/dl (33.0-37.0); MEAN PLATELET VOLUME 9.3 fl (9.6-12.3); PLATELET COUNT AUTOMATED 269 10*3/uL (130-400); RED BLOOD COUNT 3.61 10*6/uL (4.10-5.10); RED CELL DISTRI WIDTH 13.5 % (0-14.5); WHITE BLOOD COUNT 4.2 10*3/uL (4.8-10.8)
[2017-03-03 06:44] LABS: ACT PARTIAL THROMBO TIME 24.9 SECONDS (20.8-31.5)
[2017-03-03 06:49] LABS: ALBUMIN 2.9 gm/dl (3.1-4.5); CREATININE 2.26 mg/dL (0.55-1.02); MAGNESIUM 2.4 mg/dL (1.5-2.1); PHOSPHOROUS 3.4 mg/dL (2.5-4.9); POTASSIUM 5.1 mmol/L (3.5-5.1); TOTAL PROTEIN 7.6 gm/dL (6.4-8.2)
[2017-03-03 06:57] LABS: THYROID STIM HORMONE (HS) 1.45 uIU/ml (0.358-4.75)
[2017-03-03 07:19] LABS: ATYPICAL LYMPHS 1 % (0-0); BASOPHILS 2 % (0-1); ROULEAUX SLIGHT; SCHISTOCYTES FEW; TOTAL CELLS COUNTED 100 #CELLS
[2017-03-03 07:20] LABS: PLATELET SUFFICIENCY NORMAL (NORMAL)
[2017-03-03 08:00] VITALS: BP 98/60
--- NOTE | 2017-03-03 09:00 | NUR ---
PATIENT VERY TEARFUL. RN DISCUSSED WITH PATIENT REGARDING THIS. SHE IS JUST VERY OVERWHELMED. SHE WAS DISCUSSING LOSING HER HOME AND THE OF HER SON. TLC AND REASSURANCE GIVEN. DISCUSSED THIS WITH DR.CHARLES LUJAN ORDER RECEIVED FOR CONSULT OF .
[2017-03-03 09:10] LABS: VITAMIN D, 25-HYDROXY 22.9 ng/mL (30-100)
--- NOTE | 2017-03-03 09:26 | NUR ---
PRITESH SO [id number] Please refer to the physician's history and physical for past medical history, comorbid conditions, and allergies. Diagnosis: ACUTE KIDNEY INJURY,HYPONATREMIA,OSTEOMYLITIS OF L Mohit Score: 16,AT RISK WOUND DESCRIPTIONS: Location of the wound: left foot Type of wound: full thickness Size: 4cm x 0.7cm x 0.6cm Tunneling: none Undermining: none Sinus Tract: none Presence of Exudate: Sanguineous Amount: Light Color: Yellow Odor: None Periwound Skin Appearance: Erythema Wound edges: approximated Pain (associated with wound): Tender to touch at time of assessment How does patient state this happened? Patient states she has had this wound for over a month but cannot recall how she got it. Pedals felt Surface the patient is resting on: Position Pro SKIN PREVENTION RECOMMENDATION: 1. Pressure redistribution support surface as appropriate 2. Elevate heels 3. Remove boots/TEDS every shift and reapply 4. Head of bed 30 degrees as tolerated 5. Assess nutrition and hydration 6. Manage moisture 7. Avoid the use of containment devices while in bed 8. Use absorptive products on surfaces limit layers of linens on bed 9. Turn and reposition every 1-2 hours in bed and every 1 hour in chair as tolerated 10. Weight shifts every 15 minutes while up in chair 11. Offloading with pillows or device to keep heels elevated off bed 12. Monitor skin at least every shift 13. Inspect under medical devices twice a day WOUND TREATMENT RECOMMENDATIONS: Consult podiatry
--- NOTE | 2017-03-03 10:04 | NUR ---
PATIENT C/O LEFT FOOT PAIN. MEDICATED WITH MORPHINE SULFATE 2MG IV PER PRN ORDER. WILL CONTINUE TO MONITOR.
--- NOTE | 2017-03-03 11:24 | NUR ---
NOTIFIED RASHEEDA ROQUE OF NEW CONSULT FOR . STATED THAT SHE WOULD NOTIFY HIM.
--- NOTE | 2017-03-03 11:32 | NUR ---
NOTIFIED ANSWERING SERVICE OF NEW CONSULT ORDER.
[2017-03-03 12:00] VITALS: BP 96/65
--- NOTE | 2017-03-03 13:53 | NUR ---
ZOFRAN GIVEN FOR C/O NAUSEA. WILL MONITOR.
[2017-03-03 16:00] VITALS: BP 112/69
--- NOTE | 2017-03-03 16:50 | NUR ---
PATIENT C/O LEFT FOOT PAIN. MEDICATED WITH MORPHINE SULFATE 2MG IV PER PRN ORDER.
[2017-03-03 20:00] VITALS: BP 116/66
--- NOTE | 2017-03-03 20:00 | NUR ---
ASSUMED CARE OF PATIENT. ASSESSMENT COMPLETE. RESTING IN BED. NO COMPLAINTS OF PAIN AT THIS TIME. DENIES FURTHER NEEDS. MADE AWARE OF RICARDO FOR URINE SPECIMEN. CALL LIGHT IN REACH. WILL CONTINUE TO MONITOR.
--- NOTE | 2017-03-03 21:07 | NUR ---
DAILY MED REC REVIEWED WITH PATIENT.
--- NOTE | 2017-03-03 21:09 | NUR ---
MEDICATED WITH PRN MORPHINE FOR C/O LEFT FOOT PAIN. RATES 04/17. WILL MONITOR FOR EFFECTIVENESS
--- NOTE | 2017-03-03 22:12 | NUR ---
PT RESQUESTING SLEEPING PILL. CALLED AND SPOKE TO DR CIFUENTES. ORDER RECEIVED
--- NOTE | 2017-03-03 23:02 | NUR ---
MEDICATED WITH PRN RESTORIL FOR HELP TO SLEEP
[2017-03-04] VITALS: BP 115/64
--- NOTE | 2017-03-04 02:00 | NUR ---
SLEEPING. RESP EASY AND NONLABORED ON ROOM AIR. NO DISTRESS NOTED.IVF INFUSING PER ORDER WITHOUT DIFFICULTY. CALL LIGHT IN REACH. WILL CONTINUE TO MONITOR.
--- NOTE | 2017-03-04 05:53 | NUR ---
MEDICATED WITH PRN MORPHINE FOR C/O LEFT FOOT PAIN. RATES 03/18
[2017-03-04 05:54] LABS: HEMATOCRIT 30.6 % (37.0-47.0); HEMOGLOBIN 9.8 g/dl (12.0-16.0); MEAN CELL VOLUME 89.7 fl (81.0-99.0); MEAN CORPUSCULAR HGB 28.7 pg (27.0-31.0); MEAN PLATELET VOLUME 9.5 fl (9.6-12.3); PLATELET COUNT AUTOMATED 278 10*3/uL (130-400); RED BLOOD COUNT 3.41 10*6/uL (4.10-5.10); RED CELL DISTRI WIDTH 13.3 % (0-14.5); WHITE BLOOD COUNT 3.5 10*3/uL (4.8-10.8)
[2017-03-04 06:19] LABS: ALBUMIN 2.8 gm/dl (3.1-4.5); CREATININE 1.66 mg/dL (0.55-1.02); POTASSIUM 4.7 mmol/L (3.5-5.1); TOTAL PROTEIN 7.4 gm/dL (6.4-8.2)
[2017-03-04 06:55] LABS: ATYPICAL LYMPHS 1 % (0-0); TOTAL CELLS COUNTED 100 #CELLS
[2017-03-04 06:56] LABS: PLATELET SUFFICIENCY NORMAL (NORMAL); ROULEAUX MODERATE
[2017-03-04 07:05] LABS: BILIRUBIN NEGATIVE (NEGATIVE); BLOOD NEGATIVE (NEGATIVE); CLARITY CLEAR (CLEAR); COLOR YELLOW (YELLOW); GLUCOSE 3+ (NEGATIVE); KETONE NEGATIVE (NEGATIVE); LEUKO ESTERASE NEGATIVE (NEGATIVE); NITRITE NEGATIVE (NEGATIVE); PH 5.5 (5.0-9.0); UROBILINOGEN 0.2 E.U./dl (0.2-1.0)
[2017-03-04 07:47] LABS: BACTERIA 1+
[2017-03-04 08:00] VITALS: BP 130/63
--- NOTE | 2017-03-04 08:37 | NUR ---
PATIENT C/O LEFT FOOT PAIN AND HEADACHE. RATE PAIN 8/10 ON PAIN SCALE. MEDICATED WITH NORCO PER PRN ORDER. WILL CONTINUE TO MONITOR.
--- NOTE | 2017-03-04 10:03 | NUR ---
PATIENT C/O LEFT FOOT PAIN. MEDICATED WITH MORPHINE SULFATE 2MG IV PER PRN ORDER. WILL CONTINUE TO MONITOR.
--- NOTE | 2017-03-04 11:30 | NUR ---
PATIENT IS IN OR. UNABLE TO CHECK PATIENTS BGM.
[2017-03-04 12:00] VITALS: BP 113/68
--- NOTE | 2017-03-04 15:22 | NUR ---
PATIENT C/O LEFT FOOT PAIN. MEDICATED WITH MORPHINE SULFATE 2MG IV PER PRN ORDER.
[2017-03-04 16:00] VITALS: BP 125/88
[2017-03-04 20:00] VITALS: BP 131/67
--- NOTE | 2017-03-04 20:14 | NUR ---
PATIENT ON ROOM AIR, NO PROBLEMS NOTED. IV INTACT, SECURED. NO EDEMA NOTED. PATIENT STATES THAT SHE HAS PAIN IN FOOT AND IT RADIATES UP HER LEG. PATIENT WAS OFFERED PAIN MEDICATION AND TO ELEVATE HER FOOT, DENIED AT PRESENT TIME.
--- NOTE | 2017-03-04 21:00 | NUR ---
PAIN MEDICATION EFFECTIVE, PAIN SUBSIDED 2/.
[2017-03-05] VITALS (9 sets, daily range): BP systolic 120–148; BP diastolic 58–75
[2017-03-05 05:46] LABS: HEMATOCRIT 30.5 % (37.0-47.0); HEMOGLOBIN 9.9 g/dl (12.0-16.0); MEAN CELL VOLUME 88.9 fl (81.0-99.0); MEAN CORPUSCULAR HGB 28.9 pg (27.0-31.0); MEAN CORPUSCULAR HGB CONC 32.5 g/dl (33.0-37.0); PLATELET COUNT AUTOMATED 291 10*3/uL (130-400); RED BLOOD COUNT 3.43 10*6/uL (4.10-5.10); RED CELL DISTRI WIDTH 13.2 % (0-14.5); WHITE BLOOD COUNT 3.9 10*3/uL (4.8-10.8)
[2017-03-05 06:05] LABS: CREATININE 1.52 mg/dL (0.55-1.02); POTASSIUM 4.5 mmol/L (3.5-5.1)
[2017-03-05 06:18] LABS: TOTAL CELLS COUNTED 100 #CELLS
[2017-03-05 06:19] LABS: PLATELET SUFFICIENCY NORMAL (NORMAL)
--- NOTE | 2017-03-05 06:57 | NUR ---
PATIENT REQUESTED PAIN MEDICATION AT 0545 FOR LEG/FOOT PAIN, 03/18, GIVEN PER PRN ORDER
--- NOTE | 2017-03-05 08:58 | NUR ---
Information on community resource agencies that may be able to assist Tavia was given. She is in the process of looking for a new apt. She was evicted from her apt approximately two months ago. She and her are staying with her brother in-law. She needs assistance with deposit money.
--- NOTE | 2017-03-05 09:00 | NUR ---
Airplane Refueler in to talk to patient. Patient states lives at home with . There are few steps in the home. Physician: kristi gan Pharmacy: [facility] health services: none Patient's level of ADLs: INDEPENDENT Patient has working utilities: all working DME: none Follow-up physician's appointment after d/c: will be made by hosptialist nurse director upon discharge Does patient want to access PORTAL?: no Discharge plan discussed with patient, patient lives at home with , gets around fine, patient states she will be going home when able, also discussed with her giving herself iv antibiotics, patient was comfortable with this if n eeded, she also previously had ovhh, patient having surgey today, case management will follow for any needs. EDVIN ADAME
--- NOTE | 2017-03-05 09:20 | NUR ---
PATIENT STATED SHE IS REFUSING SURGICAL PROCEDURE. STATED SHE JUST WANTS TO GO HOME AND CONT CARE.
--- NOTE | 2017-03-05 09:26 | NUR ---
PATIENT IS NOW WILLING TO GO THROUGH FOOT PROCEDURE.
--- NOTE | 2017-03-05 11:22 | NUR ---
PRITESH SO [id number] Please refer to the physician's history and physical for past medical history, comorbid conditions, and allergies. Diagnosis: ACUTE KIDNEY INJURY,HYPONATREMIA,OSTEOMYLITIS OF L Mohit Score: 16,AT RISK WOUND DESCRIPTIONS: Location of the wound: left plantar foot Type of wound: surgial Thickness: Full Size: 3.0cm x 0.5cm x 3.1cm Tunnelin.1cm at 3oclock Undermining: none Sinus Tract: none Presence of Exudate: serosanguineous Amount: Light Color: Red Odor: None Periwound Skin Appearance: Normal Wound edges: approximated Pain (associated with wound): tender to touch How does patient state this happened? pt stated she had surgery during her last stay here by Dr. Martinez. She stated she was sent home on iv antibiotics and they were stopped on Sunday and then come sunday she noticed increased pain and and odor. She stated by sunday she couldn't handle the pain and said she came in to get it checked out. Surface the patient is resting on: Position Pro SKIN PREVENTION RECOMMENDATION: 1. Pressure redistribution support surface as appropriate 2. Elevate heels 3. Remove boots/TEDS every shift and reapply 4. Head of bed 30 degrees as tolerated 5. Assess nutrition and hydration 6. Manage moisture 7. Avoid the use of containment devices while in bed 8. Use absorptive products on surfaces limit layers of linens on bed 9. Turn and reposition every 1-2 hours in bed and every 1 hour in chair as tolerated 10. Weight shifts every 15 minutes while up in chair 11. Offloading with pillows or device to keep heels elevated off bed 12. Monitor skin at least every shift 13. Inspect under medical devices twice a day WOUND TREATMENT RECOMMENDATIONS: Await orders from podiatry since patient is going to surgery this afternoon.
--- NOTE | 2017-03-05 11:49 | NUR ---
PATIENT IN SURGERY.
--- NOTE | 2017-03-05 18:00 | NUR ---
IV IN LEFT WRIST INFILTRATED. NEW IV PLACED IN LAC.
--- NOTE | 2017-03-05 18:34 | NUR ---
IV IN LAC INFILTRATED. NEW IV PLACED IN LEFT ARM.
--- NOTE | 2017-03-05 22:18 | NUR ---
PT. GIVEN PRN MORPHINE FOR PAIN, PAIN RATED A 10:10 FROM LEFT FOOT.
--- NOTE | 2017-03-05 22:30 | NUR ---
PAIN MEDICATION APPEARS EFFECTIVD, PT. SLEEPING COMFORTABLY. RESPIRATIONS EASY AND REGULAR WITHOUT DISTRESS.
[2017-03-06] VITALS: BP 128/59
[2017-03-06 05:57] LABS: HEMATOCRIT 28.8 % (37.0-47.0); HEMOGLOBIN 9.4 g/dl (12.0-16.0); MEAN CELL VOLUME 89.2 fl (81.0-99.0); MEAN CORPUSCULAR HGB 29.1 pg (27.0-31.0); MEAN CORPUSCULAR HGB CONC 32.6 g/dl (33.0-37.0); MEAN PLATELET VOLUME 9.2 fl (9.6-12.3); PLATELET COUNT AUTOMATED 303 10*3/uL (130-400); RED BLOOD COUNT 3.23 10*6/uL (4.10-5.10); RED CELL DISTRI WIDTH 13.2 % (0-14.5); WHITE BLOOD COUNT 4.3 10*3/uL (4.8-10.8)
[2017-03-06 06:26] LABS: CREATININE 1.28 mg/dL (0.55-1.02)
[2017-03-06 06:46] LABS: PLATELET SUFFICIENCY NORMAL (NORMAL); TOTAL CELLS COUNTED 100 #CELLS
[2017-03-06 08:00] VITALS: BP 146/66
--- NOTE | 2017-03-06 09:00 | NUR ---
case management visits with patient, again discussed vna with patient, patient stated she only wanted vna if she had to do home iv antibotics, case managment will follow for discharge needs
[2017-03-06 12:00] VITALS: BP 141/70
--- NOTE | 2017-03-06 12:55 | NUR ---
DR CONNORS IN TO SEE PATIENT.
--- NOTE | 2017-03-06 13:05 | NUR ---
UNABLE TO OBTAIN POST I/D WOUND PIC DR CONNORS IN TO SEE PATIENT AND CHANGED DRESSING FOR THE DAY.
--- NOTE | 2017-03-06 13:27 | NUR ---
Spoke with Lauren from the wound care center to schedule her an appointment for this sunday at 11:30am. This nurse notified patient of appointment time.
[2017-03-06] MEDS ORDERED: KEFLEX500 M1 PO (14:49)
[2017-03-06 16:00] VITALS: BP 141/73
[2017-03-06] MEDS ORDERED: DULOXETINE HCL30 MG PO (17:52)
[2017-03-06] MEDS ORDERED: LANTUS SOL100 UNIT/1 SQ (17:56)
--- NOTE | 2017-03-06 18:50 | NUR ---
PT GIVEN PRN PO NORCO FOR COMPLAINTS OF LEFT FOOT PAIN, RATING PAIN AT 7/10 WILL MONITOR EFFECTIVENESS.
[2017-03-06 20:00] VITALS: BP 150/69
--- NOTE | 2017-03-06 22:21 | NUR ---
PRN MORPHINE GIVEN PER PT. REQUEST FOR LEFT FOOT PAIN, PT. RATED PAIN A 8:10.
--- NOTE | 2017-03-06 22:51 | NUR ---
PRN MORPHINE EFFECTIVE, PT. SLEEPING RESPIRATIONS EASY NONLABORED. PT. DOES NOT APPEAR IN DISTRESS.
[2017-03-07] VITALS: BP 150/77
--- NOTE | 2017-03-07 04:54 | NUR ---
24 HR chart check completed.
--- NOTE | 2017-03-07 05:44 | NUR ---
PRN NORCO GIVEN PER PT. REQUEST FOR A HEADACHE, RATING IT A 10:10.
--- NOTE | 2017-03-07 06:28 | NUR ---
PRN NORCO EFFECTIVE, PT. IS RESTING WITH 16 RESPIRATIONS THAT ARE NON LABORED.
--- NOTE | 2017-03-07 06:58 | NUR ---
PRN MORPHINE GIVE TO PT. FOR PAIN IN HER L FOOT RATING PAIN A 10:10.
[2017-03-07 07:01] LABS: BASO % 0.4 % (0.0-1.0); EOS # 0.3 10*3/uL (0.0-0.4); EOS % 5.5 % (1.0-4.0); HEMATOCRIT 30.1 % (37.0-47.0); HEMOGLOBIN 9.8 g/dl (12.0-16.0); LYMPH # 1.4 10*3/uL (1.3-4.4); LYMPH % 31.1 % (27.0-41.0); MEAN CELL VOLUME 88.5 fl (81.0-99.0); MEAN CORPUSCULAR HGB 28.8 pg (27.0-31.0); MEAN CORPUSCULAR HGB CONC 32.6 g/dl (33.0-37.0); MONO # 0.4 10*3/uL (0.1-1.0); MONO % 9.7 % (3.0-9.0); NEUT # 2.4 10*3/uL (2.3-7.9); NEUT % 52.9 % (47.0-73.0); PLATELET COUNT AUTOMATED 311 10*3/uL (130-400); RED CELL DISTRI WIDTH 13.3 % (0-14.5); WHITE BLOOD COUNT 4.5 10*3/uL (4.8-10.8)
[2017-03-07 07:24] LABS: CREATININE 1.28 mg/dL (0.55-1.02); POTASSIUM 4.2 mmol/L (3.5-5.1)
[2017-03-07 08:00] VITALS: BP 138/76
[2017-03-07] MEDS ORDERED: PERCOCET 5-3251 EACH PO (08:07)
--- NOTE | 2017-03-07 08:20 | NUR ---
Assessment completed. Notified pt of order for DC. Pt states she is aware and already called her after Dr. Ryan rounded. She states Dr. Ryan told her 45min to 1 hour so she said she called her and he will be her by 9 am and they will be ready to leave. I explained to pt that I needed to take photos of wound prior to dc, pt states if you want to you can but states her dressing was just changed this morning by the night turn shift. I told pt it was up to her. Pt states she really doesnt want dressing removed as it was just done and packed and she would prefer to not have to do it all over again.
--- NOTE | 2017-03-07 08:44 | NUR ---
Discharge instructions reviewed with patient. Patient receptive and verbalizes understanding. Follow-up care arranged. Written instructions given to patient. SUSAN RICH
--- NOTE | 2017-03-07 09:15 | NUR ---
Discharged in care of with belongings and DC instructions. Left via wheelchair with help of PA.
--- NOTE | 2017-03-07 09:16 | NUR ---
case management visits with patient, patient stated she was going home, discussed with her vna and she stated she didn't need them, she also stated that she was to follow up with the wound clinic on sunday of this week,
== END 2017-03-07 09:15 | disposition home or self-care (01) | DRG 982 ==
LOC: ED 11:26 → 4E 13:34 → EDHOLD 13:34 → 4E 13:41
PROVIDERS: Internal Medicine; Internal Medicine Nephrology; Nurse Practitioner Family; ADMIT Internal Medicine
PROC: 0KBW0ZZ Excision of Left Foot Muscle, Open Approach (ICD-10-PCS; principal; 2017-03-05)
DX: E11.69 Type 2 diabetes mellitus with other specified complication (principal); M86.672 Other chronic osteomyelitis, left ankle and foot; N17.0 Acute kidney failure with tubular necrosis; E11.621 Type 2 diabetes mellitus with foot ulcer; E87.1 Hypo-osmolality and hyponatremia; F33.2 Major depressive disorder, recurrent severe without psychotic features; G57.92 Unspecified mononeuropathy of left lower limb; E11.22 Type 2 diabetes mellitus with diabetic chronic kidney disease; E11.610 Type 2 diabetes mellitus with diabetic neuropathic arthropathy; N18.3 Chronic kidney disease, stage 3 (moderate); L97.529 Non-pressure chronic ulcer of other part of left foot with unspecified severity; E78.1 Pure hyperglyceridemia; E55.9 Vitamin D deficiency, unspecified; D64.9 Anemia, unspecified; E87.8 Other disorders of electrolyte and fluid balance, not elsewhere classified; I12.9 Hypertensive chronic kidney disease with stage 1 through stage 4 chronic kidney disease, or unspecified chronic kidney disease; F17.210 Nicotine dependence, cigarettes, uncomplicated; Z98.51 Tubal ligation status; Z90.49 Acquired absence of other specified parts of digestive tract; Z88.1 Allergy status to other antibiotic agents; Z79.4 Long term (current) use of insulin; Z79.899 Other long term (current) drug therapy; Z84.1 Family history of disorders of kidney and ureter; Z88.8 Allergy status to other drugs, medicaments and biological substances; Z80.6 Family history of leukemia; Z82.49 Family history of ischemic heart disease and other diseases of the circulatory system; Z83.3 Family history of diabetes mellitus; Z82.3 Family history of stroke; Z80.9 Family history of malignant neoplasm, unspecified

== ENCOUNTER 2017-04-14 04:11 | Inpatient (IN) | payer OTHER ==
[~2017-04-14] VITALS: Ht 165.1 cm; Wt 63.2 kg
--- NOTE | ~2017-04-14 | CON ---
[place], [place] REPORT OF CONSULTATION NAME: PRITESH SO UNIT #: [id number] ROOM: 508 DOCTOR: LEONARD PRUITT PRIYA BIRTHDATE: [birth year] DOS: 04/14/2017 HISTORY OF PRESENT ILLNESS: This is a 61-year-old female who presents to [facility] for left foot pain and swelling. She has a history of diabetic neuropathy and osteomyelitis to the left foot. She is a noncompliant patient, does not follow up in our clinic. She has been seen by our partners in the hospital for every time that she has been admitted. She was discharged with ceftaroline and Keflex and claims to have completed the antibiotic in February. She states that her foot has been draining and increase in pain for the past 4 days. She states she notices increased swelling to the area. She states that she has had pain to her left lower extremity. She denies any nausea, vomiting, fever or chills. Denies ____ shortness of breath or chest pain. PAST MEDICAL HISTORY: Charcot arthropathy secondary to diabetes mellitus, chronic kidney disease stage 3, diabetes mellitus type 2, history of pancreatitis, hypertension, hypertriglyceridemia, incidental lung nodule, normocytic anemia, history of osteomyelitis to left foot, vitamin D deficiency. PAST SURGICAL HISTORY: History of tubal ligation, history of foot surgery for osteomyelitis, history of appendectomy, history of tonsillectomy. SOCIAL HISTORY: The patient denies any alcohol use or illicit drug use. The patient admits to being a smoker. ALLERGIES: The patient is allergic to VANCOMYCIN, BENADRYL and IBUPROFEN. MEDICATIONS: Please see MAR for current list of medications. REVIEW OF SYSTEMS: GENERAL: Denies fevers, chills, weight loss, weight gain. EYES: Denies vision changes, nasal discharge, ear pain, eye pain, mouth pain or dysphagia. CARDIOVASCULAR: Admits to lower extremity edema. Denies any chest pain, palpitations or diaphoresis. RESPIRATORY: Denies any shortness of breath, cough, hemoptysis, wheezing or sputum production. ABDOMINAL: Denies abdominal pain, nausea, vomiting, diarrhea, constipation, loss of appetite. GENITOURINARY: Reports increased frequency. Denies any dysuria, hematuria or urgency. NEUROLOGIC: Admits to lower extremity neuropathy. Denies any lightheadedness, dizziness or denies confusion. ENDOCRINE: Denies polydipsia, heat intolerance or cold intolerance. SKIN: Admits to a chronic left nonhealing ulcer. PHYSICAL EXAMINATION: VITAL SIGNS: Temperature 97.4, pulse 75, respiratory rate 20, blood pressure 143/73. FOCUSED LOWER EXTREMITY EXAMINATION: [place], [place] REPORT OF CONSULTATION NAME: PRITESH SO UNIT #: [id number] ROOM: 508 DOCTOR: LEONARD PRUITT PRIYA BIRTHDATE: [birth year] VASCULAR: DP and PT pulses are palpable bilateral. CFT is less than 5 seconds to digits 1 through 5 bilateral. There is no hair present to the digits 1 through 5 bilateral. There is mild increase in swelling to the left lower extremity compared to the right lower extremity at this time. NEUROLOGIC: Protective sensation is decreased to digits 1 through 5 bilateral. Decreased mass and muscle tone noted to bilateral extremities. MUSCULOSKELETAL: 5/5 muscle strength noted to bilateral lower extremities. Pain on palpation to the left lower extremity ulceration. Denies calf pain bilateral. Equinus deformity appreciated to bilateral extremities. There is also midfoot collapse noted to the left lower extremity secondary to Charcot deformity. DERMATOLOGIC: There is a full thickness ulceration noted to the plantar aspect of the left lower extremity at the mid foot region. There is hyperkeratotic tissue noted surrounding it. Upon compression, there is no purulent drainage or malodor expressed from the wound. The wound bed appears to be fibrogranular in nature, does not track and does not probe to bone. There is no undermining underneath the tissue, but again no fluctuance, crepitus or active signs of infection appreciated at this time. ASSESSMENT AND PLAN: 1. Full thickness chronic nonhealing ulceration, left lower extremity secondary to (?) noncompliance versus infection. This may likely be secondary to chronic osteomyelitis versus Charcot arthropathy . 2. Type 2 diabetes mellitus with peripheral neuropathy. 3. Chronic kidney disease. PLAN: 1. The patient is seen and examined. 2. Dressing applied with Betadine dry sterile dressing. 3. Nonweightbearing to the left lower extremity. 4. Appreciate ID recs. 5. We will order MRI and vascular studies to rule out osteomyelitis. 6. We will continue to follow. ANGEL LUIS PRUITT DPM CM:CONSTR:REPORT OF CONSULTATION [id number] 04/14/17 2033 interface
[~2017-04-14 04:11] MED LIST changes: +DULOXETINE HCL30 MG PO; +KEFLEX500 M1 PO; +LANTUS SOL100 UNIT/1 SQ; +MULTILEX-T-M W1 EACH PO; +PERCOCET 5-3251 EACH PO; +VITAMIN D31000 UNI1 PO; +ZESTORETIC 20-1 EACH PO
[2017-04-14 04:17] VITALS: BP 150/77
[2017-04-14 04:58] VITALS: BP 142/77
[2017-04-14 05:03] LABS: BILIRUBIN NEGATIVE (NEGATIVE); BLOOD TRACE-INTACT (NEGATIVE); CLARITY CLEAR (CLEAR); COLOR YELLOW (YELLOW); GLUCOSE 3+ (NEGATIVE); KETONE NEGATIVE (NEGATIVE); LEUKO ESTERASE NEGATIVE (NEGATIVE); NITRITE NEGATIVE (NEGATIVE); UROBILINOGEN 0.2 E.U./dl (0.2-1.0)
[2017-04-14 05:14] VITALS: BP 141/70
[2017-04-14 05:16] LABS: BASO % 0.3 % (0.0-1.0); EOS # 0.1 10*3/uL (0.0-0.4); EOS % 1.4 % (1.0-4.0); HEMATOCRIT 29.1 % (37.0-47.0); HEMOGLOBIN 9.5 g/dl (12.0-16.0); LYMPH # 1.2 10*3/uL (1.3-4.4); LYMPH % 19.3 % (27.0-41.0); MEAN CELL VOLUME 83.9 fl (81.0-99.0); MEAN CORPUSCULAR HGB 27.4 pg (27.0-31.0); MEAN CORPUSCULAR HGB CONC 32.6 g/dl (33.0-37.0); MEAN PLATELET VOLUME 8.9 fl (9.6-12.3); MONO # 0.6 10*3/uL (0.1-1.0); MONO % 9.1 % (3.0-9.0); NEUT # 4.3 10*3/uL (2.3-7.9); NEUT % 69.3 % (47.0-73.0); PLATELET COUNT AUTOMATED 441 10*3/uL (130-400); RED BLOOD COUNT 3.47 10*6/uL (4.10-5.10); RED CELL DISTRI WIDTH 14.6 % (0-14.5); WHITE BLOOD COUNT 6.3 10*3/uL (4.8-10.8)
--- NOTE | 2017-04-14 05:23 | NUR ---
PATIENT REPORTING RELIEF FROM HER PAIN AT THIS TIME. NO NEEDS VOICED. CALL LIGHT WITHIN REACH.
[2017-04-14 05:44] LABS: ALBUMIN 2.7 gm/dl (3.1-4.5); ALKALINE PHOSPHATASE 65 U/L (45-117); BUN 31 mg/dl (7-24); CHLORIDE 91 mmol/L (98-107); CREATININE 1.81 mg/dL (0.55-1.02); MAGNESIUM 1.8 mg/dL (1.5-2.1); POTASSIUM 3.8 mmol/L (3.5-5.1); SGOT/AST 11 IU/L (3-35); SGPT/ALT 11 U/L (12-78); SODIUM 128 mmol/L (136-145)
[2017-04-14 05:45] LABS: TROPONIN I < 0.015 ng/ml (<0.045)
--- NOTE | 2017-04-14 06:22 | NUR ---
ATTEMPTED TO CALL REPORT. NURSE UNAVAILABLE. WILL CONTINUE TO MONITOR.
--- NOTE | 2017-04-14 06:25 | NUR ---
REPORT RECEIVED FROM YENY ACOSTA.
--- NOTE | 2017-04-14 06:40 | NUR ---
A 61, admitted to 5E, under the services of ANAYA Mckeon DO with a diagnosis of OSTEOMYLITIS. Chief complaint is OSTEOMYLITIS. Patient arrived via OTHER from ER. Monitor applied. Initial assessment completed. Vital signs taken and recorded. ANAYA MCKEON DO notified of admission to the unit. Orders received. See assessment for past medical history, medications and allergies. Patient and/or family oriented to unit. visitation policy reviewed. Clothing/patient valuable form completed. EVELIO SHAY
[2017-04-14 06:53] VITALS: BP 143/73
--- NOTE | 2017-04-14 07:00 | NUR ---
PATIENT UNABLE TO GIVE ACCURATE LIST OF MEDS D/T BEING MEDICATED WITH DILAUDID AND ATIVAN IN ER, USES [facility], LAT[facility]
--- NOTE | 2017-04-14 07:59 | NUR ---
MORPHINE GIVEN AT THIS TIME FOR C/O PAIN OF 04/17. PT STATES HER FOOT IS "JUMPING" AND SHE DON'T KNOW WHY. NO DISTRESS NOTED. SEE ASSESS. WILL CONT TO MONITOR. CALL LIGHT IN REACH.
[2017-04-14 08:00] VITALS: BP 143/99
--- NOTE | 2017-04-14 08:36 | NUR ---
OFFICE STAFF WAS NOTIFIED OF DR. CONNORS CONSULT. RESPONSE OF NOTIFICATION WAS OK I WILL GET THIS TO HIM. DEVON WHEATLEY
--- NOTE | 2017-04-14 08:59 | NUR ---
MORPHINE EFF. PT RESTING QUIETLY. WILL CONT TO MONITOR.
--- NOTE | 2017-04-14 09:53 | NUR ---
NORCO GIVEN FOR C/O PAIN TO LEFT FOOT OF 04/17. WILL CONT TO MONITOR. CALL LIGHT IN REACH.
--- NOTE | 2017-04-14 11:02 | NUR ---
PRITESH SO [id number] Please refer to the physician's history and physical for past medical history, comorbid conditions, and allergies. Diagnosis: OSTEOMYELITIS OF ANKLE OR FOOT Mohit Score: 18,AT RISK WOUND DESCRIPTIONS: Location of the wound: left plantar foot Type of wound: Thickness: Full Size: 1.5cm x 0.5cm x 0.3cm Tunneling: none Undermining: none Sinus Tract: none Presence of Exudate: none Amount: None Color: Yellow Odor: None Periwound Skin Appearance: pale Wound edges: callused Pain (associated with wound): Patient stated pain was 10/10 at time of assessment. How does patient state this happened? Patient stated she has been "dealing with this forever". Surface the patient is resting on: Isoflex SKIN PREVENTION RECOMMENDATION: 1. Pressure redistribution support surface as appropriate 2. Elevate heels 3. Remove boots/TEDS every shift and reapply 4. Head of bed 30 degrees as tolerated 5. Assess nutrition and hydration 6. Manage moisture 7. Avoid the use of containment devices while in bed 8. Use absorptive products on surfaces limit layers of linens on bed 9. Turn and reposition every 1-2 hours in bed and every 1 hour in chair as tolerated 10. Weight shifts every 15 minutes while up in chair 11. Offloading with pillows or device to keep heels elevated off bed 12. Monitor skin at least every shift 13. Inspect under medical devices twice a day WOUND TREATMENT RECOMMENDATIONS: Consult podiatry
[2017-04-14] MEDS ORDERED: MOBIC7.5 MG PO (11:20)
--- NOTE | 2017-04-14 11:28 | NUR ---
PT LEFT AMA AT THIS TIME. DR VIVAS AND LUMBER BUYER NOTIFIED.
== END 2017-04-14 11:28 | disposition left against medical advice (07) | DRG 637 ==
LOC: ED 04:11 → EDHOLD 06:11 → 5E 06:23
PROVIDERS: Emergency Medicine Emergency Medical Services; ADMIT Internal Medicine
DX: E11.69 Type 2 diabetes mellitus with other specified complication (principal); E43 Unspecified severe protein-calorie malnutrition; M86.8X7 Other osteomyelitis, ankle and foot; N17.0 Acute kidney failure with tubular necrosis; E11.621 Type 2 diabetes mellitus with foot ulcer; E11.610 Type 2 diabetes mellitus with diabetic neuropathic arthropathy; E87.8 Other disorders of electrolyte and fluid balance, not elsewhere classified; E11.22 Type 2 diabetes mellitus with diabetic chronic kidney disease; D72.810 Lymphocytopenia; E11.65 Type 2 diabetes mellitus with hyperglycemia; D64.9 Anemia, unspecified; E78.1 Pure hyperglyceridemia; D47.3 Essential (hemorrhagic) thrombocythemia; L97.529 Non-pressure chronic ulcer of other part of left foot with unspecified severity; Z53.21 Procedure and treatment not carried out due to patient leaving prior to being seen by health care provider; N18.3 Chronic kidney disease, stage 3 (moderate); I12.9 Hypertensive chronic kidney disease with stage 1 through stage 4 chronic kidney disease, or unspecified chronic kidney disease; Z88.1 Allergy status to other antibiotic agents; Z88.8 Allergy status to other drugs, medicaments and biological substances; Z79.899 Other long term (current) drug therapy; Z98.51 Tubal ligation status; Z90.49 Acquired absence of other specified parts of digestive tract; Z83.3 Family history of diabetes mellitus; Z82.49 Family history of ischemic heart disease and other diseases of the circulatory system; Z80.6 Family history of leukemia; Z82.0 Family history of epilepsy and other diseases of the nervous system; Z79.4 Long term (current) use of insulin; Z88.6 Allergy status to analgesic agent

== ENCOUNTER 2017-06-04 11:40 | Inpatient (IN) | payer OTHER ==
[~2017-06-04] VITALS: Ht 165.1 cm; Wt 55.8 kg
[~2017-06-04 11:40] MED LIST changes: +MOBIC7.5 MG PO
[2017-06-04 12:01] VITALS: BP 118/72
[2017-06-04 12:06] VITALS: BP 108/76
[2017-06-04 12:22] LABS: BASO % 0.3 % (0.0-1.0); HEMATOCRIT 33.8 % (37.0-47.0); HEMOGLOBIN 10.9 g/dl (12.0-16.0); LYMPH # 2.7 10*3/uL (1.3-4.4); LYMPH % 23.7 % (27.0-41.0); MEAN CELL VOLUME 76.6 fl (81.0-99.0); MEAN CORPUSCULAR HGB 24.7 pg (27.0-31.0); MEAN CORPUSCULAR HGB CONC 32.2 g/dl (33.0-37.0); MEAN PLATELET VOLUME 8.8 fl (9.6-12.3); MONO % 8.6 % (3.0-9.0); NEUT # 7.7 10*3/uL (2.3-7.9); NEUT % 67.1 % (47.0-73.0); PLATELET COUNT AUTOMATED 530 10*3/uL (130-400); RED BLOOD COUNT 4.41 10*6/uL (4.10-5.10); RED CELL DISTRI WIDTH 17.6 % (0-14.5); WHITE BLOOD COUNT 11.5 10*3/uL (4.8-10.8)
--- NOTE | 2017-06-04 12:40 | NUR ---
PT REFUSED NEURONTIN. STATES THAT IT CAUSES HER TO HAVE PANCREATITIS. DR SORIANO MADE AWARE OF THIS. PT IS AWAKE AND ALERT. NAHED ACOSTA
[2017-06-04 12:49] LABS: CREATININE 1.87 mg/dL (0.55-1.02); POTASSIUM 4.3 mmol/L (3.5-5.1)
--- NOTE | 2017-06-04 13:32 | NUR ---
PT RESTING IN BED. AWARE OF ADMISSION STATUS.
--- NOTE | 2017-06-04 13:34 | NUR ---
PT REQUESTING ADDITIONAL PAIN MEDICATION. DR. SORIANO MADE AWARE.
--- NOTE | 2017-06-04 14:06 | NUR ---
REPORT CALLED TO TANGELA ACOSTA. PT READY FOR TRANSPORT TO INPATIENT ROOM
[2017-06-04 14:20] VITALS: BP 92/58
--- NOTE | 2017-06-04 14:20 | NUR ---
A 62, admitted to , under the services of YASMANY Pritchett DO with a diagnosis of OSTEOMYELITIS. Chief complaint is pain and swelling of left foot. Patient arrived via stretcher from ER. Initial assessment completed. Vital signs taken and recorded. See assessment for past medical history, medications and allergies. Patient and/or family oriented to unit. [facility] visitation policy reviewed. Clothing/patient valuable form completed. TANGELA LUCAS L
--- NOTE | 2017-06-04 14:30 | NUR ---
PRITESH SO [id number] Please refer to the physician's history and physical for past medical history, comorbid conditions, and allergies. Diagnosis: OSTEOMYELITIS Mohit Score: , WOUND DESCRIPTIONS: Location of the wound: left plantar foot Type of wound: surgical Thickness: Full Size: 1.7cm x 0.6cm x <0.1 Tunneling: none Undermining: none Sinus Tract: none Presence of Exudate: none Amount: None Color: Brown Odor: None Periwound Skin Appearance: Erythema Wound edges: closed Pain (associated with wound): tender to touch How does patient state this happened? pt had surgery several months ago by podiatry unable to follow with them due to them not being able to take her insurance. Surface the patient is resting on: Isoflex SKIN PREVENTION RECOMMENDATION: 1. Pressure redistribution support surface as appropriate 2. Elevate heels 3. Remove boots/TEDS every shift and reapply 4. Head of bed 30 degrees as tolerated 5. Assess nutrition and hydration 6. Manage moisture 7. Avoid the use of containment devices while in bed 8. Use absorptive products on surfaces limit layers of linens on bed 9. Turn and reposition every 1-2 hours in bed and every 1 hour in chair as tolerated 10. Weight shifts every 15 minutes while up in chair 11. Offloading with pillows or device to keep heels elevated off bed 12. Monitor skin at least every shift 13. Inspect under medical devices twice a day WOUND TREATMENT RECOMMENDATIONS: Consult Podiatry for wound care orders since podiatry is the one who did her surgery seveal months ago.
[2017-06-04] MEDS ORDERED: CYMBALTA30 MG PO (14:34)
[2017-06-04] MEDS ORDERED: PROTONIX40 MG PO (14:35)
[2017-06-04] MEDS ORDERED: [UNRECOGNIZED DRUG - OTHER] SC (14:37)
[2017-06-04] MEDS ORDERED: HUMALOG100 UNIT/1 SC (14:38)
[2017-06-04] MEDS ORDERED: TRAMADOL HCL50 MG PO (14:39)
[2017-06-04] MEDS ORDERED: BASAGLAR SC (14:41)
[2017-06-04] MEDS ORDERED: ZESTORETIC 20-1 EACH PO (14:43)
[2017-06-04 16:00] VITALS: BP 102/80
--- NOTE | 2017-06-04 16:00 | NUR ---
PATIENT GIVEN DILAUDID FOR PAIN RATED AN 8/10 ON THE SOLE OF HER LEFT FOOT. WILL CONTINUE TO MONITOR AND REASSESS.
--- NOTE | 2017-06-04 17:00 | NUR ---
PAIN MEDICATION EFFECTIVE FOR FOOT PAIN. PAIN VERBALIZES A NEW PAIN LEVEL OF 2/10 AND DESCRIBES THE PAIN OCCASIONALLY THROBBING.
--- NOTE | 2017-06-04 19:00 | NUR ---
DR CARTER CONSULTED FOR A NON-HEALING WOUND ON THE LEFT FOOT. SAID HE WOULD BE IN TO SEE IT TOMORROW.
[2017-06-04 20:00] VITALS: BP 124/67
[2017-06-05 06:16] LABS: BASO % 0.4 % (0.0-1.0); EOS # 0.1 10*3/uL (0.0-0.4); EOS % 0.7 % (1.0-4.0); HEMATOCRIT 33.6 % (37.0-47.0); LYMPH # 1.3 10*3/uL (1.3-4.4); MEAN CELL VOLUME 77.8 fl (81.0-99.0); MEAN CORPUSCULAR HGB 25.5 pg (27.0-31.0); MEAN CORPUSCULAR HGB CONC 32.7 g/dl (33.0-37.0); MEAN PLATELET VOLUME 8.7 fl (9.6-12.3); MONO # 0.5 10*3/uL (0.1-1.0); NEUT # 5.1 10*3/uL (2.3-7.9); NEUT % 73.3 % (47.0-73.0); PLATELET COUNT AUTOMATED 482 10*3/uL (130-400); RED BLOOD COUNT 4.32 10*6/uL (4.10-5.10); RED CELL DISTRI WIDTH 17.4 % (0-14.5)
[2017-06-05 06:35] LABS: ALBUMIN 2.9 gm/dl (3.1-4.5); CREATININE 1.74 mg/dL (0.55-1.02); PHOSPHOROUS 2.8 mg/dL (2.5-4.9); POTASSIUM 4.8 mmol/L (3.5-5.1); TOTAL PROTEIN 9.1 gm/dL (6.4-8.2)
[2017-06-05 06:41] LABS: FREE T4 1.28 ng/dl (0.76-1.46); THYROID STIM HORMONE (HS) 1.45 uIU/ml (0.358-4.75)
--- NOTE | 2017-06-05 07:40 | NUR ---
Patient sleeping. Respirations easy and regular. Vital signs stable. No overt distress. AVELINA ZUNIGA
[2017-06-05 07:58] LABS: VITAMIN D, 25-HYDROXY 28.2 ng/mL (30-100)
[2017-06-05 08:00] VITALS: BP 112/68
--- NOTE | 2017-06-05 09:00 | NUR ---
Duty Manager in to talk to patient. Patient states lives at home with . There are no steps in the home. Physician: kristi gan Pharmacy: [facility] services: none Patient's level of ADLs: MINIMAL ASSIST Patient has working utilities: all working DME: crutches Follow-up physician's appointment after d/c: will be made by hospitalist nurse director upon discharge Does patient want to access PORTAL?: no Discharge plan discussed with patient, patient lives at home with her , she has been using crutches to ambulate, patient stated they recently moved into their own home and it has been better for to ambulate. discussed with her a discharge plan and she stated she would be returning home, she will be following up with the wound clinic. patient stated that if she needed home iv antibiotics, she would be fine giving them to herself and would like [facility]. case management will follow and set up any discharge needs patient may have. EDVIN ADAME
--- NOTE | 2017-06-05 09:17 | NUR ---
PT REQUESTED AND WAS MEDICATED WITH MORPHINE IV FOR C/O FOOT PAIN.
[2017-06-05 12:00] VITALS: BP 109/68
--- NOTE | 2017-06-05 15:39 | NUR ---
PT RESTING IN BED, WILL MONITOR
[2017-06-05 16:00] VITALS: BP 115/74
[2017-06-05 20:00] VITALS: BP 110/71
[2017-06-06] VITALS: BP 114/58
[2017-06-06 06:51] LABS: RETICULOCYTE % 1.05 % (0.50-2.50)
[2017-06-06 07:07] LABS: IRON 47 ug/dL (50-170); TOTAL IRON BINDING CAPACITY 370 ug/dl (250-450)
[2017-06-06 08:00] VITALS: BP 102/56
--- NOTE | 2017-06-06 08:23 | NUR ---
PHYSICAL THERAPY Nursing screen for PT received. Orders for PT not appropriate. PAtient rat exterminator care and non ambulatory. Mallorie Hays,PT
[2017-06-06 08:27] LABS: FERRITIN 194.1 ng/mL (10.0-291.0)
--- NOTE | 2017-06-06 08:47 | NUR ---
PT MEDICATED WITH PRN MORPHINE AT THIS TIME FOR C/O LEFT FOOT PAIN THAT SHE RATES AN 8/10. WILL REACCESS.
--- NOTE | 2017-06-06 09:00 | NUR ---
case management visits with patient, discussed with her a discharge plan and her follow up with the wound clinic, asked her if she would have transportation to get to appointments, and patient stated he could take her, also gave her the phone number for [employer] service and told her that this transportation was also availabe and she would just need to call ahead of time to schedule. patient verbalized understanding
--- NOTE | 2017-06-06 13:56 | NUR ---
PT MEDICATED WITH PRN NORCO FOR C/O BILATERAL FOOT PAIN. PT RATES PAIN 02/15. WILL CONTINUE TO MONITOR.
[2017-06-06] MEDS ORDERED: VIBRAMYCIN100 MG PO (15:52)
[2017-06-06] MEDS ORDERED: NORCO 5-325 TA1 EACH PO (15:52)
[2017-06-06 16:00] VITALS: BP 93/50
--- NOTE | 2017-06-06 17:14 | NUR ---
PT MEDICATED AT THIS TIME WITH PRN MORPHINE FOR C/O RIGHT ELBOW PAIN. PATIENT RATES PAIN 10/10. WILL REACCESS.
--- NOTE | 2017-06-06 18:46 | NUR ---
PRN MORPHINE EFFECTIVE PER PT.
[2017-06-06 20:00] VITALS: BP 105/65
--- NOTE | 2017-06-06 20:12 | NUR ---
PT. IS CURRENTLY RESTING IN BED WATCHING TV AT THIS TIME. NO DISTRESS IS NOTED AND PT. DOES VERBALIZE C/O FOOT PAIN, UNABLE TO MEDICATE FOR PAIN AT THIS PRESENT MOMENT. HOB IS ELEVATED, BED IS LOW AND WHEELS ARE LOCKED. PT. HAS CALL LIGHT IN REACH, SEE SHIFT ASSESSMENT.
--- NOTE | 2017-06-06 21:29 | NUR ---
PRN MORPHINE GIVEN PER PT. REQUEST C/O LEFT FOOT PAIN, CALL LIGHT IN REACH WILL MONITOR EFFECT.
--- NOTE | 2017-06-06 22:00 | NUR ---
PRN MORPHINE SEEMS EFFECTIVE, PT. DOES NOT VERBALIZE ANY C/O PAIN AT THIS TIME.
--- NOTE | 2017-06-06 23:09 | NUR ---
PRN RESTORIL GIVEN PER PT. REQUEST FOR INSOMNIA, CALL LIGHT IS WITHIN REACH. WILL MONITOR EFFECT.
--- NOTE | 2017-06-06 23:50 | NUR ---
24 HR chart check completed.
[2017-06-07] VITALS: BP 113/65
--- NOTE | 2017-06-07 05:36 | NUR ---
PRN MORPHINE GIVEN PER PT. REQUEST FOR CHRONIC LEFT FOOT PAIN. CALL LIGHT IS WITHIN REACH WILL MONITOR EFFECT.
[2017-06-07 08:00] VITALS: BP 118/76
--- NOTE | 2017-06-07 09:00 | NUR ---
case management visits with patient, patient states she is going home today, educated her on importance of following up with the wound clinic, and reminded her that she has the [employer] number for transportation, patient verbalized understanding
--- NOTE | 2017-06-07 10:41 | NUR ---
NORCO 5/325 MG GIVEN FOR C/O LEFT FOOT PAIN,04/17.
--- NOTE | 2017-06-07 11:49 | NUR ---
C/O PAIN BOTH FEET 10/10 "SAME ALWAYS FROM MY DIABETES" MORPHINE 1 MG IVP GIVEN WILL CONTINUE TO ASSESS.NASIM BLAIR RN
[2017-06-07 12:00] VITALS: BP 143/84
--- NOTE | 2017-06-07 15:03 | NUR ---
Nursing screen received and chart review completed. Patient has osteomyelitis left foot and reports that she uses crutches and her assists in the home as needed for IADLs. She is independent and no OT referral indicated at this time. Patient in agreement. Yazmin Bellamy OTR/shanna
[2017-06-07] MEDS ORDERED: FEROSUL325 MG PO (15:17)
--- NOTE | 2017-06-07 15:40 | NUR ---
Discharge instructions reviewed with patient/family. Patient receptive and verbalizes understanding. Follow-up care arranged. Written instructions given to patient/family. PAMELLA MARIA
== END 2017-06-07 15:40 | disposition home or self-care (01) | DRG 638 ==
LOC: ED 11:40 → EDHOLD 13:14 → 5E 13:14
PROVIDERS: Emergency Medicine; Registered Nurse; ADMIT Emergency Medicine
DX: E11.69 Type 2 diabetes mellitus with other specified complication (principal); E44.0 Moderate protein-calorie malnutrition; M86.672 Other chronic osteomyelitis, left ankle and foot; E11.610 Type 2 diabetes mellitus with diabetic neuropathic arthropathy; E11.22 Type 2 diabetes mellitus with diabetic chronic kidney disease; E11.65 Type 2 diabetes mellitus with hyperglycemia; F17.200 Nicotine dependence, unspecified, uncomplicated; D50.9 Iron deficiency anemia, unspecified; E87.1 Hypo-osmolality and hyponatremia; I12.9 Hypertensive chronic kidney disease with stage 1 through stage 4 chronic kidney disease, or unspecified chronic kidney disease; N18.3 Chronic kidney disease, stage 3 (moderate); D47.3 Essential (hemorrhagic) thrombocythemia; E55.9 Vitamin D deficiency, unspecified; E78.1 Pure hyperglyceridemia; Z90.49 Acquired absence of other specified parts of digestive tract; Z88.1 Allergy status to other antibiotic agents; Z88.8 Allergy status to other drugs, medicaments and biological substances; Z98.51 Tubal ligation status; Z82.49 Family history of ischemic heart disease and other diseases of the circulatory system; Z79.4 Long term (current) use of insulin; Z83.3 Family history of diabetes mellitus; Z79.899 Other long term (current) drug therapy; Z68.21 Body mass index [BMI] 21.0-21.9, adult

== ENCOUNTER 2017-09-29 21:24 | Inpatient (IN) | payer OTHER ==
[~2017-09-29] VITALS: Ht 165.1 cm; Wt 60.1 kg
[~2017-09-29 21:24] MED LIST changes: +BASAGLAR SC; +CYMBALTA30 MG PO; +FEROSUL325 MG PO; +HUMALOG100 UNIT/1 SC; +NORCO 5-325 TA1 EACH PO; +VIBRAMYCIN100 MG PO; +[UNRECOGNIZED DRUG - OTHER] SC
[2017-09-29 21:29] VITALS: BP 133/68
[2017-09-29 22:19] LABS: BASO % 0.2 % (0.0-1.0); EOS % 0.1 % (1.0-4.0); HEMOGLOBIN 11.7 g/dl (12.0-16.0); LYMPH # 2.2 10*3/uL (1.3-4.4); LYMPH % 25.2 % (27.0-41.0); MEAN CELL VOLUME 83.5 fl (81.0-99.0); MEAN CORPUSCULAR HGB 27.1 pg (27.0-31.0); MEAN CORPUSCULAR HGB CONC 32.5 g/dl (33.0-37.0); MEAN PLATELET VOLUME 8.4 fl (9.6-12.3); MONO # 0.7 10*3/uL (0.1-1.0); MONO % 7.5 % (3.0-9.0); NEUT # 5.8 10*3/uL (2.3-7.9); NEUT % 66.7 % (47.0-73.0); PLATELET COUNT AUTOMATED 609 10*3/uL (130-400); RED BLOOD COUNT 4.31 10*6/uL (4.10-5.10); RED CELL DISTRI WIDTH 14.2 % (0-14.5); WHITE BLOOD COUNT 8.7 10*3/uL (4.8-10.8)
[2017-09-29 22:43] LABS: ALBUMIN 3.1 gm/dl (3.1-4.5); ALKALINE PHOSPHATASE 89 U/L (45-117); BUN 32 mg/dl (7-24); CHLORIDE 89 mmol/L (98-107); CREATININE 1.38 mg/dL (0.55-1.02); POTASSIUM 4.6 mmol/L (3.5-5.1); SGOT/AST 13 IU/L (3-35); SGPT/ALT 16 U/L (12-78); SODIUM 125 mmol/L (136-145); TOTAL PROTEIN 9.9 gm/dL (6.4-8.2)
[2017-09-29 22:44] LABS: TROPONIN I < 0.015 ng/ml (<0.045)
[2017-09-29 22:45] LABS: BILIRUBIN NEGATIVE (NEGATIVE); BLOOD TRACE-LYSED (NEGATIVE); CLARITY CLEAR (CLEAR); COLOR YELLOW (YELLOW); GLUCOSE NEGATIVE (NEGATIVE); KETONE NEGATIVE (NEGATIVE); LEUKO ESTERASE NEGATIVE (NEGATIVE); NITRITE NEGATIVE (NEGATIVE); SPECIFIC GRAVITY <= 1.005 (1.005-1.030); UROBILINOGEN 0.2 E.U./dl (0.2-1.0)
[2017-09-29 22:52] LABS: BACTERIA 1+; EPITHELIAL CELLS 20-25
[2017-09-29 23:00] VITALS: BP 148/118
[2017-09-30] VITALS: BP 148/118
[2017-09-30 00:57] VITALS: BP 124/78
[2017-09-30 06:42] LABS: BASO % 0.2 % (0.0-1.0); EOS % 0.2 % (1.0-4.0); HEMATOCRIT 35.4 % (37.0-47.0); HEMOGLOBIN 11.6 g/dl (12.0-16.0); LYMPH # 1.8 10*3/uL (1.3-4.4); LYMPH % 28.8 % (27.0-41.0); MEAN CELL VOLUME 83.9 fl (81.0-99.0); MEAN CORPUSCULAR HGB 27.5 pg (27.0-31.0); MEAN CORPUSCULAR HGB CONC 32.8 g/dl (33.0-37.0); MEAN PLATELET VOLUME 8.7 fl (9.6-12.3); MONO # 0.6 10*3/uL (0.1-1.0); MONO % 9.1 % (3.0-9.0); NEUT # 3.8 10*3/uL (2.3-7.9); NEUT % 61.4 % (47.0-73.0); PLATELET COUNT AUTOMATED 576 10*3/uL (130-400); RED BLOOD COUNT 4.22 10*6/uL (4.10-5.10); RED CELL DISTRI WIDTH 14.2 % (0-14.5); WHITE BLOOD COUNT 6.2 10*3/uL (4.8-10.8)
[2017-09-30 07:11] LABS: ALBUMIN 2.6 gm/dl (3.1-4.5); CREATININE 1.25 mg/dL (0.55-1.02); PHOSPHOROUS 3.7 mg/dL (2.5-4.9); POTASSIUM 4.6 mmol/L (3.5-5.1); TOTAL PROTEIN 8.7 gm/dL (6.4-8.2)
[2017-09-30 07:12] LABS: ACT PARTIAL THROMBO TIME 27.9 SECONDS (20.8-31.5); INTERNATIONAL NORM RATIO 1.1 (2.0-3.5)
[2017-09-30 07:18] LABS: FREE T4 1.15 ng/dl (0.76-1.46); THYROID STIM HORMONE (HS) 0.449 uIU/ml (0.358-4.75)
[2017-09-30 08:00] VITALS: BP 124/77
[2017-09-30 08:27] LABS: VITAMIN D, 25-HYDROXY 22.8 ng/mL (30-100)
[2017-09-30 12:00] VITALS: BP 123/64
[2017-09-30 16:00] VITALS: BP 99/52
[2017-09-30 20:00] VITALS: BP 118/63
[2017-10-01] VITALS: BP 102/66
[2017-10-01 06:37] LABS: BASO % 0.3 % (0.0-1.0); EOS % 0.4 % (1.0-4.0); HEMATOCRIT 34.4 % (37.0-47.0); HEMOGLOBIN 11.4 g/dl (12.0-16.0); LYMPH # 1.7 10*3/uL (1.3-4.4); LYMPH % 23.8 % (27.0-41.0); MEAN CELL VOLUME 83.9 fl (81.0-99.0); MEAN CORPUSCULAR HGB 27.8 pg (27.0-31.0); MEAN CORPUSCULAR HGB CONC 33.1 g/dl (33.0-37.0); MEAN PLATELET VOLUME 8.6 fl (9.6-12.3); MONO # 0.6 10*3/uL (0.1-1.0); MONO % 8.3 % (3.0-9.0); NEUT # 4.7 10*3/uL (2.3-7.9); NEUT % 66.8 % (47.0-73.0); PLATELET COUNT AUTOMATED 567 10*3/uL (130-400); RED CELL DISTRI WIDTH 14.1 % (0-14.5); WHITE BLOOD COUNT 7.1 10*3/uL (4.8-10.8)
[2017-10-01 07:05] LABS: POTASSIUM 4.6 mmol/L (3.5-5.1)
[2017-10-01 07:12] LABS: ALBUMIN 2.5 gm/dl (3.1-4.5); CREATININE 1.31 mg/dL (0.55-1.02); PHOSPHOROUS 4.1 mg/dL (2.5-4.9); TOTAL PROTEIN 8.8 gm/dL (6.4-8.2)
[2017-10-01 08:00] VITALS: BP 108/72
[2017-10-01 12:00] VITALS: BP 100/62
[2017-10-01 16:00] VITALS: BP 144/86
[2017-10-01 20:00] VITALS: BP 111/79
[2017-10-02 00:25] VITALS: BP 104/61
[2017-10-02 07:11] LABS: CREATININE 1.3 mg/dL (0.55-1.02); POTASSIUM 4.6 mmol/L (3.5-5.1)
[2017-10-02 08:00] VITALS: BP 95/70
[2017-10-02 12:00] VITALS: BP 109/54
[2017-10-02] MEDS ORDERED: SEPTDS PO ×2 (12:19→13:49)
== END 2017-10-02 12:51 | disposition home or self-care (01) | DRG 592 ==
LOC: ED 21:24 → 5E 22:14 → EDHOLD 22:14 → 5E 22:38
PROVIDERS: Emergency Medicine Emergency Medical Services; Hospitalist; Internal Medicine; Student in an Organized Health Care Education/Training Program
DX: L97.529 Non-pressure chronic ulcer of other part of left foot with unspecified severity (principal); E43 Unspecified severe protein-calorie malnutrition; E11.22 Type 2 diabetes mellitus with diabetic chronic kidney disease; E11.610 Type 2 diabetes mellitus with diabetic neuropathic arthropathy; D50.9 Iron deficiency anemia, unspecified; F17.210 Nicotine dependence, cigarettes, uncomplicated; L03.116 Cellulitis of left lower limb; E87.1 Hypo-osmolality and hyponatremia; E11.621 Type 2 diabetes mellitus with foot ulcer; K21.9 Gastro-esophageal reflux disease without esophagitis; D47.3 Essential (hemorrhagic) thrombocythemia; I12.9 Hypertensive chronic kidney disease with stage 1 through stage 4 chronic kidney disease, or unspecified chronic kidney disease; E55.9 Vitamin D deficiency, unspecified; E78.1 Pure hyperglyceridemia; N18.3 Chronic kidney disease, stage 3 (moderate); Z79.4 Long term (current) use of insulin; Z98.51 Tubal ligation status; Z79.899 Other long term (current) drug therapy; Z90.49 Acquired absence of other specified parts of digestive tract; Z91.19 Patient's noncompliance with other medical treatment and regimen; Z88.1 Allergy status to other antibiotic agents; Z88.8 Allergy status to other drugs, medicaments and biological substances; Z83.3 Family history of diabetes mellitus; Z82.49 Family history of ischemic heart disease and other diseases of the circulatory system; Z82.3 Family history of stroke; Z80.6 Family history of leukemia

== ENCOUNTER → 2020-03-01 | Outpatient (CLI) | payer OTHER ==
[~2020-03-01] MED LIST changes: +SEPTDS PO
== END | disposition home or self-care (01) ==
LOC: MAMMO 14:30
DX: Z12.31 Encounter for screening mammogram for malignant neoplasm of breast (principal); E11.42 Type 2 diabetes mellitus with diabetic polyneuropathy

== ENCOUNTER → 2020-04-28 | Outpatient (CLI) | payer OTHER | END | disposition home or self-care (01) | LOC: MAMMO 13:00 → US 13:30 | PROVIDERS: ATTEND Physician Assistant | DX: R92.8 Other abnormal and inconclusive findings on diagnostic imaging of breast (principal) ==

== ENCOUNTER 2020-08-03 14:21 | Inpatient (IN) | payer OTHER ==
[~2020-08-03] VITALS: Ht 165.1 cm; Wt 63.6 kg
[2020-08-03 14:34] VITALS: BP 154/67
[2020-08-03 15:07] LABS: BASO % 0.2 % (0.0-1.0); EOS % 0.1 % (1.0-4.0); HEMATOCRIT 35.1 % (37.0-47.0); LYMPH # 1.5 10*3/uL (1.3-4.4); LYMPH % 11.7 % (27.0-41.0); MEAN CELL VOLUME 84.2 fl (81.0-99.0); MEAN CORPUSCULAR HGB 27.6 pg (27.0-31.0); MEAN CORPUSCULAR HGB CONC 32.8 g/dl (33.0-37.0); MEAN PLATELET VOLUME 8.6 fl (9.6-12.3); MONO # 0.6 10*3/uL (0.1-1.0); MONO % 4.9 % (3.0-9.0); NEUT # 10.7 10*3/uL (2.3-7.9); NEUT % 81.4 % (47.0-73.0); PLATELET COUNT AUTOMATED 951 10*3/uL (130-400); RED BLOOD COUNT 4.17 10*6/uL (4.10-5.10); WHITE BLOOD COUNT 13.1 10*3/uL (4.8-10.8)
[2020-08-03 15:37] LABS: ALBUMIN 2.5 gm/dl (3.1-4.5); CREATININE 1.37 mg/dL (0.55-1.02); POTASSIUM 4.5 mmol/L (3.5-5.1); TOTAL PROTEIN 9.9 gm/dL (6.4-8.2)
[2020-08-03] MEDS ORDERED: LANTUS SOL100 UNIT/1 SC (15:57)
[2020-08-03 16:00] VITALS: BP 129/59
[2020-08-03 17:21] LABS: BILIRUBIN Negative (Negative); BLOOD Trace-Lysed (Negative); CLARITY Clear (Clear); COLOR Yellow (Yellow); GLUCOSE 3+ (Negative); KETONE Negative (Negative); LEUKO ESTERASE 1+ (Negative); NITRITE Negative (Negative); PH 5.5 (4.5-8.0); SPECIFIC GRAVITY 1.025 (1.001-1.030); UROBILINOGEN 0.2 E.U./dl (0.0-1.0)
[2020-08-03 17:55] LABS: WBC 31-40 wbc/hpf (0-5)
[2020-08-03 17:56] LABS: BACTERIA 3+
[2020-08-03 18:01] LABS: ALBUMIN 2.7 gm/dl (3.1-4.5); CREATININE 1.26 mg/dL (0.55-1.02); POTASSIUM 5.3 mmol/L (3.5-5.1)
[2020-08-03 19:17] VITALS: BP 126/63
[2020-08-03 20:40] VITALS: BP 129/59
[2020-08-04] VITALS (11 sets, daily range): BP systolic 116–156; BP diastolic 56–84
[2020-08-04 00:54] LABS: BUN 16 mg/dl (7-24); CHLORIDE 93 mmol/L (98-107); CREATININE 0.93 mg/dL (0.55-1.02); POTASSIUM 4.7 mmol/L (3.5-5.1); SODIUM 125 mmol/L (136-145)
[2020-08-04 06:39] LABS: BASO % 0.1 % (0.0-1.0); EOS # 0.1 10*3/uL (0.0-0.4); EOS % 0.8 % (1.0-4.0); HEMATOCRIT 29.9 % (37.0-47.0); LYMPH # 1.9 10*3/uL (1.3-4.4); LYMPH % 24.2 % (27.0-41.0); MEAN CELL VOLUME 85.9 fl (81.0-99.0); MEAN CORPUSCULAR HGB 27.6 pg (27.0-31.0); MEAN CORPUSCULAR HGB CONC 32.1 g/dl (33.0-37.0); MEAN PLATELET VOLUME 8.6 fl (9.6-12.3); MONO # 0.6 10*3/uL (0.1-1.0); MONO % 7.3 % (3.0-9.0); NEUT # 5.2 10*3/uL (2.3-7.9); NEUT % 66.3 % (47.0-73.0); PLATELET COUNT AUTOMATED 727 10*3/uL (130-400); RED BLOOD COUNT 3.48 10*6/uL (4.10-5.10); RED CELL DISTRI WIDTH 14.2 % (0-14.5); WHITE BLOOD COUNT 7.8 10*3/uL (4.8-10.8)
[2020-08-04 06:51] LABS: ACT PARTIAL THROMBO TIME 31.9 SECONDS (20.0-32.1); ALBUMIN 2.1 gm/dl (3.1-4.5); BUN 13 mg/dl (7-24); CHLORIDE 96 mmol/L (98-107); CREATININE 0.86 mg/dL (0.55-1.02); INTERNATIONAL NORM RATIO 1.1 (2.0-3.5); POTASSIUM 3.9 mmol/L (3.5-5.1); SODIUM 129 mmol/L (136-145)
[2020-08-04 06:57] LABS: ALBUMIN 2.1 gm/dl (3.1-4.5); BUN 13 mg/dl (7-24); CHLORIDE 94 mmol/L (98-107); CHOLESTEROL 123 mg/dL (<200); CREATININE 0.84 mg/dL (0.55-1.02); POTASSIUM 3.9 mmol/L (3.5-5.1); SGOT/AST 82 IU/L (3-35); SGPT/ALT 75 U/L (12-78); SODIUM 127 mmol/L (136-145); TRIGLYCERIDES 152 mg/dl (<150); VLDL CHOLESTEROL 30 mg/dL (6-40)
[2020-08-04 07:06] LABS: ALKALINE PHOSPHATASE 150 U/L (45-117); FREE T4 1.15 ng/dl (0.76-1.46); HDL CHOLESTEROL 23 mg/dl (40-60); LDL CHOLESTEROL 70 mg/dL (9-159)
[2020-08-04 07:33] LABS: VITAMIN D, 25-HYDROXY 23.8 ng/mL (30-100)
[2020-08-05] VITALS: BP 123/61
[2020-08-05 02:39] VITALS: BP 110/70
[2020-08-05 08:00] VITALS: BP 132/68
[2020-08-05 08:08] LABS: BASO % 0.1 % (0.0-1.0); EOS % 0.4 % (1.0-4.0); HEMATOCRIT 28.4 % (37.0-47.0); LYMPH # 1.8 10*3/uL (1.3-4.4); LYMPH % 22.3 % (27.0-41.0); MEAN CELL VOLUME 86.9 fl (81.0-99.0); MEAN CORPUSCULAR HGB 27.5 pg (27.0-31.0); MEAN CORPUSCULAR HGB CONC 31.7 g/dl (33.0-37.0); MEAN PLATELET VOLUME 8.4 fl (9.6-12.3); MONO # 0.6 10*3/uL (0.1-1.0); MONO % 6.9 % (3.0-9.0); NEUT # 5.5 10*3/uL (2.3-7.9); NEUT % 69.3 % (47.0-73.0); PLATELET COUNT AUTOMATED 672 10*3/uL (130-400); RED BLOOD COUNT 3.27 10*6/uL (4.10-5.10); RED CELL DISTRI WIDTH 14.2 % (0-14.5)
[2020-08-05 08:21] LABS: BUN 10 mg/dl (7-24); CHLORIDE 95 mmol/L (98-107); CREATININE 0.91 mg/dL (0.55-1.02); POTASSIUM 4.2 mmol/L (3.5-5.1); SODIUM 127 mmol/L (136-145)
[2020-08-05 12:00] VITALS: BP 138/74
[2020-08-05 13:11] LABS: ACID FAST SPEC PROCESSING Tissue Grinding (.)
[2020-08-05 13:11] LABS: ACID FAST SPEC PROCESSING Tissue Grinding (.)
[2020-08-05 16:00] VITALS: BP 121/71
[2020-08-05 20:00] VITALS: BP 127/64
[2020-08-06] VITALS: BP 123/65
[2020-08-06 06:46] LABS: BASO % 0.1 % (0.0-1.0); EOS # 0.1 10*3/uL (0.0-0.4); EOS % 1.1 % (1.0-4.0); HEMATOCRIT 28.2 % (37.0-47.0); LYMPH # 1.9 10*3/uL (1.3-4.4); LYMPH % 26.3 % (27.0-41.0); MEAN CELL VOLUME 88.7 fl (81.0-99.0); MEAN CORPUSCULAR HGB 27.7 pg (27.0-31.0); MEAN CORPUSCULAR HGB CONC 31.2 g/dl (33.0-37.0); MEAN PLATELET VOLUME 8.5 fl (9.6-12.3); MONO # 0.5 10*3/uL (0.1-1.0); MONO % 6.3 % (3.0-9.0); NEUT # 4.8 10*3/uL (2.3-7.9); NEUT % 65.6 % (47.0-73.0); PLATELET COUNT AUTOMATED 680 10*3/uL (130-400); RED BLOOD COUNT 3.18 10*6/uL (4.10-5.10); RED CELL DISTRI WIDTH 14.3 % (0-14.5); WHITE BLOOD COUNT 7.3 10*3/uL (4.8-10.8)
[2020-08-06 07:10] LABS: ALBUMIN 1.8 gm/dl (3.1-4.5); ALKALINE PHOSPHATASE 142 U/L (45-117); BUN 7 mg/dl (7-24); CHLORIDE 101 mmol/L (98-107); CREATININE 0.72 mg/dL (0.55-1.02); POTASSIUM 4.1 mmol/L (3.5-5.1); SGOT/AST 31 IU/L (3-35); SGPT/ALT 49 U/L (12-78); SODIUM 133 mmol/L (136-145); TOTAL PROTEIN 7.2 gm/dL (6.4-8.2)
[2020-08-06 08:00] VITALS: BP 138/76
[2020-08-06 12:00] VITALS: BP 149/59
[2020-08-06 16:00] VITALS: BP 152/71
[2020-08-06 20:00] VITALS: BP 159/81
[2020-08-07] VITALS: BP 149/79
[2020-08-07 08:00] VITALS: BP 134/73
[2020-08-07 12:00] VITALS: BP 153/81
[2020-08-07 16:00] VITALS: BP 152/69
[2020-08-07 20:00] VITALS: BP 155/71
[2020-08-08] VITALS: BP 138/69
[2020-08-08 01:15] VITALS: BP 130/70
[2020-08-08 06:09] LABS: BASO % 0.4 % (0.0-1.0); EOS # 0.1 10*3/uL (0.0-0.4); HEMATOCRIT 29.6 % (37.0-47.0); LYMPH # 1.7 10*3/uL (1.3-4.4); LYMPH % 33.9 % (27.0-41.0); MEAN CELL VOLUME 86.3 fl (81.0-99.0); MEAN CORPUSCULAR HGB 26.8 pg (27.0-31.0); MEAN CORPUSCULAR HGB CONC 31.1 g/dl (33.0-37.0); MEAN PLATELET VOLUME 8.4 fl (9.6-12.3); MONO # 0.3 10*3/uL (0.1-1.0); MONO % 5.9 % (3.0-9.0); NEUT # 2.9 10*3/uL (2.3-7.9); NEUT % 58.2 % (47.0-73.0); PLATELET COUNT AUTOMATED 666 10*3/uL (130-400); RED BLOOD COUNT 3.43 10*6/uL (4.10-5.10); RED CELL DISTRI WIDTH 13.9 % (0-14.5); WHITE BLOOD COUNT 5.1 10*3/uL (4.8-10.8)
[2020-08-08 06:20] LABS: ALBUMIN 1.9 gm/dl (3.1-4.5); ALKALINE PHOSPHATASE 199 U/L (45-117); BUN 10 mg/dl (7-24); CHLORIDE 102 mmol/L (98-107); CREATININE 0.59 mg/dL (0.55-1.02); POTASSIUM 4.2 mmol/L (3.5-5.1); SGOT/AST 45 IU/L (3-35); SGPT/ALT 44 U/L (12-78); SODIUM 134 mmol/L (136-145); TOTAL PROTEIN 7.9 gm/dL (6.4-8.2)
[2020-08-08 08:00] VITALS: BP 160/79
[2020-08-08 12:00] VITALS: BP 170/80
[2020-08-08 16:00] VITALS: BP 170/86
[2020-08-08 20:00] VITALS: BP 151/71
[2020-08-09] VITALS: BP 167/82
[2020-08-09 08:00] VITALS: BP 170/82
[2020-08-09 12:00] VITALS: BP 110/62
[2020-08-09 16:00] VITALS: BP 155/70
[2020-08-09 20:00] VITALS: BP 160/89
[2020-08-10] VITALS: BP 158/86
[2020-08-10 06:53] LABS: BASO % 0.2 % (0.0-1.0); EOS # 0.1 10*3/uL (0.0-0.4); EOS % 2.2 % (1.0-4.0); HEMATOCRIT 29.3 % (37.0-47.0); LYMPH # 1.8 10*3/uL (1.3-4.4); MEAN CELL VOLUME 87.2 fl (81.0-99.0); MEAN CORPUSCULAR HGB 27.4 pg (27.0-31.0); MEAN CORPUSCULAR HGB CONC 31.4 g/dl (33.0-37.0); MEAN PLATELET VOLUME 8.2 fl (9.6-12.3); MONO # 0.5 10*3/uL (0.1-1.0); MONO % 9.4 % (3.0-9.0); NEUT # 2.7 10*3/uL (2.3-7.9); NEUT % 51.8 % (47.0-73.0); PLATELET COUNT AUTOMATED 539 10*3/uL (130-400); RED BLOOD COUNT 3.36 10*6/uL (4.10-5.10); RED CELL DISTRI WIDTH 14.1 % (0-14.5); WHITE BLOOD COUNT 5.1 10*3/uL (4.8-10.8)
[2020-08-10 07:26] LABS: ALBUMIN 2.1 gm/dl (3.1-4.5); BUN 10 mg/dl (7-24); CHLORIDE 102 mmol/L (98-107); CREATININE 0.57 mg/dL (0.55-1.02); POTASSIUM 3.9 mmol/L (3.5-5.1); SGOT/AST 32 IU/L (3-35); SGPT/ALT 44 U/L (12-78); SODIUM 137 mmol/L (136-145)
[2020-08-10 07:28] LABS: ALKALINE PHOSPHATASE 171 U/L (45-117); TOTAL PROTEIN 7.4 gm/dL (6.4-8.2)
[2020-08-10 08:00] VITALS: BP 178/91
[2020-08-10 12:00] VITALS: BP 160/75
[2020-08-10] MEDS ORDERED: UNASYN 3 GM VIAL3 GM IV (15:02)
[2020-08-10] MEDS ORDERED: PERCOCET 7.5-31 EACH PO ×2 (15:08→15:09)
[2020-09-20 12:06] LABS: ACID FAST CULTURE Negative (.)
[2020-09-20 12:06] LABS: ACID FAST CULTURE Negative (.)
== END 2020-08-10 17:04 | disposition home health service (06) | DRG 710 ==
LOC: ED 14:21 → 5E 15:54 → EDHOLD 15:54 → 5E 18:54
PROVIDERS: Internal Medicine Nephrology; Nurse Practitioner; Podiatrist; Social Worker Clinical; Student in an Organized Health Care Education/Training Program; ADMIT Internal Medicine; ATTEND Internal Medicine
PROC: 0QBN0ZZ Excision of Right Metatarsal, Open Approach (ICD-10-PCS; principal; 2020-08-04)
PROC: 0YHM0YZ Insertion of Other Device into Right Foot, Open Approach (ICD-10-PCS; 2020-08-04)
PROC: 0HBNXZZ Excision of Left Foot Skin, External Approach (ICD-10-PCS; 2020-08-04)
PROC: 05HY33Z Insertion of Infusion Device into Upper Vein, Percutaneous Approach (ICD-10-PCS; 2020-08-09)
DX: A41.9 Sepsis, unspecified organism (principal); T14.8XXA Other injury of unspecified body region, initial encounter; L02.611 Cutaneous abscess of right foot; M86.171 Other acute osteomyelitis, right ankle and foot; E44.0 Moderate protein-calorie malnutrition; E87.1 Hypo-osmolality and hyponatremia; E11.610 Type 2 diabetes mellitus with diabetic neuropathic arthropathy; N18.30 Chronic kidney disease, stage 3 unspecified; E11.22 Type 2 diabetes mellitus with diabetic chronic kidney disease; I12.9 Hypertensive chronic kidney disease with stage 1 through stage 4 chronic kidney disease, or unspecified chronic kidney disease; R65.20 Severe sepsis without septic shock; N17.0 Acute kidney failure with tubular necrosis; D64.9 Anemia, unspecified; D47.3 Essential (hemorrhagic) thrombocythemia; D72.9 Disorder of white blood cells, unspecified; E87.8 Other disorders of electrolyte and fluid balance, not elsewhere classified; E11.65 Type 2 diabetes mellitus with hyperglycemia; R74.01 Elevation of levels of liver transaminase levels; R80.9 Proteinuria, unspecified; K21.9 Gastro-esophageal reflux disease without esophagitis; E11.69 Type 2 diabetes mellitus with other specified complication; E11.621 Type 2 diabetes mellitus with foot ulcer; L97.529 Non-pressure chronic ulcer of other part of left foot with unspecified severity; L97.519 Non-pressure chronic ulcer of other part of right foot with unspecified severity; B96.4 Proteus (mirabilis) (morganii) as the cause of diseases classified elsewhere; B95.2 Enterococcus as the cause of diseases classified elsewhere; E11.40 Type 2 diabetes mellitus with diabetic neuropathy, unspecified; M20.40 Other hammer toe(s) (acquired), unspecified foot; M19.071 Primary osteoarthritis, right ankle and foot; I70.201 Unspecified atherosclerosis of native arteries of extremities, right leg; F17.210 Nicotine dependence, cigarettes, uncomplicated; L03.115 Cellulitis of right lower limb; Z16.12 Extended spectrum beta lactamase (ESBL) resistance; N39.0 Urinary tract infection, site not specified; Z79.4 Long term (current) use of insulin; Z88.1 Allergy status to other antibiotic agents; Z88.8 Allergy status to other drugs, medicaments and biological substances; Z88.6 Allergy status to analgesic agent; Z98.51 Tubal ligation status; Z90.49 Acquired absence of other specified parts of digestive tract; Z82.49 Family history of ischemic heart disease and other diseases of the circulatory system; Z83.3 Family history of diabetes mellitus; Z80.6 Family history of leukemia; Z80.8 Family history of malignant neoplasm of other organs or systems; Z84.89 Family history of other specified conditions; Z79.899 Other long term (current) drug therapy; Z68.23 Body mass index [BMI] 23.0-23.9, adult; L08.9 Local infection of the skin and subcutaneous tissue, unspecified

== ENCOUNTER 2021-04-03 14:34 | Emergency (ER) | payer OTHER ==
[~2021-04-03] VITALS: Ht 165.1 cm; Wt 56.7 kg
[~2021-04-03 14:34] MED LIST changes: +LANTUS SOL100 UNIT/1 SC; +PERCOCET 7.5-31 EACH PO; +UNASYN 3 GM VIAL3 GM IV
== END 2021-04-03 14:46 | disposition left against medical advice (07) ==
LOC: ED 14:34
DX: L98.9 Disorder of the skin and subcutaneous tissue, unspecified (principal); Z53.21 Procedure and treatment not carried out due to patient leaving prior to being seen by health care provider

== ENCOUNTER → 2021-04-05 | Outpatient (CLI) | payer OTHER | LOC: WOUNDCARE 09:31 | PROVIDERS: ATTEND Surgery | DX: E11.621 Type 2 diabetes mellitus with foot ulcer (principal); L97.523 Non-pressure chronic ulcer of other part of left foot with necrosis of muscle; L97.513 Non-pressure chronic ulcer of other part of right foot with necrosis of muscle; E11.42 Type 2 diabetes mellitus with diabetic polyneuropathy; I10 Essential (primary) hypertension; E78.5 Hyperlipidemia, unspecified; Z90.49 Acquired absence of other specified parts of digestive tract; Z98.890 Other specified postprocedural states; F17.200 Nicotine dependence, unspecified, uncomplicated ==

== ENCOUNTER 2021-04-23 15:13 | Emergency (ER) | payer OTHER ==
[~2021-04-23] VITALS: Ht 167.6 cm; Wt 79.4 kg
[2021-04-23 16:22] LABS: BASO % 0.3 % (0.0-1.0); EOS % 0.2 % (1.0-4.0); HEMATOCRIT 39.3 % (37.0-47.0); LYMPH # 1.1 10*3/uL (1.3-4.4); LYMPH % 16.5 % (27.0-41.0); MEAN CELL VOLUME 83.1 fl (81.0-99.0); MEAN CORPUSCULAR HGB 26.2 pg (27.0-31.0); MEAN CORPUSCULAR HGB CONC 31.6 g/dl (33.0-37.0); MEAN PLATELET VOLUME 8.6 fl (9.6-12.3); MONO # 0.4 10*3/uL (0.1-1.0); MONO % 5.3 % (3.0-9.0); NEUT # 5.1 10*3/uL (2.3-7.9); NEUT % 77.2 % (47.0-73.0); PLATELET COUNT AUTOMATED 574 10*3/uL (130-400); RED BLOOD COUNT 4.73 10*6/uL (4.10-5.10); RED CELL DISTRI WIDTH 16.2 % (0-14.5); WHITE BLOOD COUNT 6.6 10*3/uL (4.8-10.8)
[2021-04-23 16:34] LABS: BUN 20 mg/dl (7-24); CHLORIDE 100 mmol/L (98-107); CREATININE 1.05 mg/dL (0.55-1.02); POTASSIUM 4.6 mmol/L (3.5-5.1); SODIUM 132 mmol/L (136-145)
== END 2021-04-23 20:00 | disposition left against medical advice (07) ==
LOC: ED 15:13
PROVIDERS: Nurse Practitioner Family
DX: E11.621 Type 2 diabetes mellitus with foot ulcer (principal)

== ENCOUNTER 2022-03-19 17:54 | Emergency (ER) | payer OTHER ==
[~2022-03-19 17:54] MED LIST changes: +ADMELOG100 UNIT/1 IV; +ASPIRIN ADULT L81 M2 PO; +ATORVASTATIN CA40 M1 PO; +CARVEDILOL6.25 MG PO; +ZOSYN 4.54.5 GM/100 IV
== END 2022-03-19 20:00 | disposition left against medical advice (07) ==
LOC: ED 17:54
DX: T50.901A Poisoning by unspecified drugs, medicaments and biological substances, accidental (unintentional), initial encounter (principal); Z53.21 Procedure and treatment not carried out due to patient leaving prior to being seen by health care provider; Y92.89 Other specified places as the place of occurrence of the external cause

== ENCOUNTER 2022-06-17 15:08 | Inpatient (IN) | payer MEDICARE, MEDICAID ==
[~2022-06-17] VITALS: Ht 165.1 cm; Wt 61.0 kg
[~2022-06-17 15:08] MED LIST changes: +LIPITOR40 MG PO
[2022-06-17 15:16] VITALS: BP 178/90
[2022-06-17 15:47] LABS: BASO % 0.4 % (0.0-1.0); EOS # 0.1 10*3/uL (0.0-0.4); EOS % 1.1 % (1.0-4.0); HEMATOCRIT 37.1 % (37.0-47.0); LYMPH # 1.5 10*3/uL (1.3-4.4); LYMPH % 33.1 % (27.0-41.0); MEAN CELL VOLUME 80.3 fl (81.0-99.0); MEAN CORPUSCULAR HGB 25.5 pg (27.0-31.0); MEAN CORPUSCULAR HGB CONC 31.8 g/dl (33.0-37.0); MEAN PLATELET VOLUME 8.7 fl (9.6-12.3); MONO # 0.3 10*3/uL (0.1-1.0); MONO % 7.3 % (3.0-9.0); NEUT # 2.7 10*3/uL (2.3-7.9); NEUT % 57.9 % (47.0-73.0); PLATELET COUNT AUTOMATED 437 10*3/uL (130-400); RED BLOOD COUNT 4.62 10*6/uL (4.10-5.10); RED CELL DISTRI WIDTH 16.1 % (0-14.5); WHITE BLOOD COUNT 4.7 10*3/uL (4.8-10.8)
[2022-06-17 16:02] LABS: ALKALINE PHOSPHATASE 95 U/L (46-116); BUN 11 mg/dl (9-23); CHLORIDE 101 mmol/L (98-107); CREATININE 0.76 mg/dL (0.55-1.02); POTASSIUM 3.7 mmol/L (3.4-5.1); SGPT/ALT 8 U/L (10-49); SODIUM 137 mmol/L (136-145); TOTAL PROTEIN 7.9 gm/dL (6.0-8.0)
[2022-06-18] VITALS (8 sets, daily range): BP systolic 143–174; BP diastolic 57–89
[2022-06-18 05:08] LABS: INTERNATIONAL NORM RATIO 1.1 (2.0-3.5)
[2022-06-18 06:06] LABS: BASO % 0.7 % (0.0-1.0); EOS # 0.1 10*3/uL (0.0-0.4); EOS % 2.6 % (1.0-4.0); HEMATOCRIT 35.2 % (37.0-47.0); LYMPH # 1.9 10*3/uL (1.3-4.4); LYMPH % 44.1 % (27.0-41.0); MEAN CELL VOLUME 79.3 fl (81.0-99.0); MEAN CORPUSCULAR HGB 25.2 pg (27.0-31.0); MEAN CORPUSCULAR HGB CONC 31.8 g/dl (33.0-37.0); MEAN PLATELET VOLUME 9.1 fl (9.6-12.3); MONO # 0.4 10*3/uL (0.1-1.0); MONO % 9.5 % (3.0-9.0); NEUT # 1.9 10*3/uL (2.3-7.9); NEUT % 42.9 % (47.0-73.0); PLATELET COUNT AUTOMATED 441 10*3/uL (130-400); RED BLOOD COUNT 4.44 10*6/uL (4.10-5.10); RED CELL DISTRI WIDTH 16.1 % (0-14.5); WHITE BLOOD COUNT 4.3 10*3/uL (4.8-10.8)
[2022-06-18 11:14] LABS: ALKALINE PHOSPHATASE 82 U/L (46-116); BUN 11 mg/dl (9-23); CHLORIDE 104 mmol/L (98-107); CREATININE 0.72 mg/dL (0.55-1.02); POTASSIUM 3.6 mmol/L (3.4-5.1); SODIUM 138 mmol/L (136-145); TOTAL PROTEIN 7.3 gm/dL (6.0-8.0)
[2022-06-18 11:28] LABS: SGPT/ALT 8 U/L (10-49)
[2022-06-19] VITALS (11 sets, daily range): BP systolic 142–173; BP diastolic 71–106
[2022-06-19 06:26] LABS: BASO % 0.6 % (0.0-1.0); EOS # 0.1 10*3/uL (0.0-0.4); EOS % 2.2 % (1.0-4.0); HEMATOCRIT 42.8 % (37.0-47.0); LYMPH # 1.8 10*3/uL (1.3-4.4); LYMPH % 35.1 % (27.0-41.0); MEAN CELL VOLUME 79.9 fl (81.0-99.0); MEAN CORPUSCULAR HGB 25.2 pg (27.0-31.0); MEAN CORPUSCULAR HGB CONC 31.5 g/dl (33.0-37.0); MEAN PLATELET VOLUME 8.6 fl (9.6-12.3); MONO # 0.3 10*3/uL (0.1-1.0); MONO % 5.1 % (3.0-9.0); NEUT # 2.9 10*3/uL (2.3-7.9); NEUT % 56.8 % (47.0-73.0); PLATELET COUNT AUTOMATED 431 10*3/uL (130-400); RED BLOOD COUNT 5.36 10*6/uL (4.10-5.10); RED CELL DISTRI WIDTH 15.9 % (0-14.5); WHITE BLOOD COUNT 5.1 10*3/uL (4.8-10.8)
[2022-06-19 06:47] LABS: BUN 7 mg/dl (9-23); CHLORIDE 99 mmol/L (98-107); CREATININE 0.76 mg/dL (0.55-1.02); POTASSIUM 3.5 mmol/L (3.4-5.1); SODIUM 137 mmol/L (136-145)
[2022-06-20] VITALS: BP 136/70
[2022-06-20 06:34] LABS: BUN 15 mg/dl (9-23); CHLORIDE 100 mmol/L (98-107); CREATININE 0.89 mg/dL (0.55-1.02); POTASSIUM 4.4 mmol/L (3.4-5.1); SODIUM 135 mmol/L (136-145)
[2022-06-20 06:37] LABS: BASO % 0.4 % (0.0-1.0); HEMATOCRIT 35.8 % (37.0-47.0); LYMPH # 1.2 10*3/uL (1.3-4.4); LYMPH % 24.2 % (27.0-41.0); MEAN CELL VOLUME 78.2 fl (81.0-99.0); MEAN CORPUSCULAR HGB 25.3 pg (27.0-31.0); MEAN CORPUSCULAR HGB CONC 32.4 g/dl (33.0-37.0); MEAN PLATELET VOLUME 9.1 fl (9.6-12.3); MONO # 0.2 10*3/uL (0.1-1.0); MONO % 3.2 % (3.0-9.0); NEUT # 3.6 10*3/uL (2.3-7.9); NEUT % 71.8 % (47.0-73.0); PLATELET COUNT AUTOMATED 436 10*3/uL (130-400); RED BLOOD COUNT 4.58 10*6/uL (4.10-5.10); RED CELL DISTRI WIDTH 15.8 % (0-14.5)
[2022-06-20 08:00] VITALS: BP 155/82
== END 2022-06-20 11:15 | disposition left against medical advice (07) | DRG 629 ==
LOC: ED 15:08 → 4E 15:36 → EDHOLD 15:36 → 4E 06-18 07:41
PROVIDERS: Family Medicine; Student in an Organized Health Care Education/Training Program; ADMIT Student in an Organized Health Care Education/Training Program; ATTEND Student in an Organized Health Care Education/Training Program
PROC: 0Q9 Lower Bones, Drainage (ICD-10-PCS; principal; 2022-06-19)
PROC: 0SPFX5Z Removal of External Fixation Device from Right Ankle Joint, External Approach (ICD-10-PCS; 2022-06-19)
PROC: 3E0T3BZ Introduction of Anesthetic Agent into Peripheral Nerves and Plexi, Percutaneous Approach (ICD-10-PCS; 2022-06-19)
PROC: 3E0T33Z Introduction of Anti-inflammatory into Peripheral Nerves and Plexi, Percutaneous Approach (ICD-10-PCS; 2022-06-19)
DX: E11.69 Type 2 diabetes mellitus with other specified complication (principal); M86.171 Other acute osteomyelitis, right ankle and foot; E44.0 Moderate protein-calorie malnutrition; E11.65 Type 2 diabetes mellitus with hyperglycemia; N18.30 Chronic kidney disease, stage 3 unspecified; E11.621 Type 2 diabetes mellitus with foot ulcer; T84.9XXS Unspecified complication of internal orthopedic prosthetic device, implant and graft, sequela; T84.7XXS Infection and inflammatory reaction due to other internal orthopedic prosthetic devices, implants and grafts, sequela; E11.22 Type 2 diabetes mellitus with diabetic chronic kidney disease; K21.9 Gastro-esophageal reflux disease without esophagitis; D72.819 Decreased white blood cell count, unspecified; D75.839 Thrombocytosis, unspecified; E83.52 Hypercalcemia; E11.610 Type 2 diabetes mellitus with diabetic neuropathic arthropathy; D50.9 Iron deficiency anemia, unspecified; E11.42 Type 2 diabetes mellitus with diabetic polyneuropathy; Z53.29 Procedure and treatment not carried out because of patient's decision for other reasons; Z88.6 Allergy status to analgesic agent; Z88.1 Allergy status to other antibiotic agents; Z88.8 Allergy status to other drugs, medicaments and biological substances; Z98.51 Tubal ligation status; Z83.3 Family history of diabetes mellitus; Z82.49 Family history of ischemic heart disease and other diseases of the circulatory system; Z80.6 Family history of leukemia; Z91.199 Patient's noncompliance with other medical treatment and regimen due to unspecified reason; I25.2 Old myocardial infarction; Z87.39 Personal history of other diseases of the musculoskeletal system and connective tissue; Z68.22 Body mass index [BMI] 22.0-22.9, adult

== ENCOUNTER 2023-01-29 11:04 | Emergency (ER) | payer OTHER, MEDICAID ==
[~2023-01-29] VITALS: Ht 165.1 cm; Wt 56.7 kg
[~2023-01-29 11:04] MED LIST changes: +NICODERM CQ1 EAC2 TD
[2023-01-29 12:03] LABS: BASO % 0.4 % (0.0-1.0); EOS % 0.4 % (1.0-4.0); HEMATOCRIT 48.3 % (37.0-47.0); LYMPH # 2.2 10*3/uL (1.3-4.4); LYMPH % 24.5 % (27.0-41.0); MEAN CELL VOLUME 84.9 fl (81.0-99.0); MEAN CORPUSCULAR HGB CONC 34.2 g/dl (33.0-37.0); MEAN PLATELET VOLUME 8.8 fl (9.6-12.3); MONO # 0.5 10*3/uL (0.1-1.0); MONO % 5.6 % (3.0-9.0); NEUT # 6.2 10*3/uL (2.3-7.9); NEUT % 68.9 % (47.0-73.0); PLATELET COUNT AUTOMATED 381 10*3/uL (130-400); RED BLOOD COUNT 5.69 10*6/uL (4.10-5.10); RED CELL DISTRI WIDTH 14.6 % (0-14.5); WHITE BLOOD COUNT 9.1 10*3/uL (4.8-10.8)
[2023-01-29 12:24] LABS: ALKALINE PHOSPHATASE 80 U/L (46-116); BUN 11 mg/dl (9-23); CHLORIDE 104 mmol/L (98-107); POTASSIUM 3.9 mmol/L (3.4-5.1); SGPT/ALT 7 U/L (10-49); TOTAL PROTEIN 8.9 gm/dL (6.0-8.0)
[2023-01-29] MEDS ORDERED: HYDROCODONE-AC1 EAC1 PO (14:07)
[2023-01-29] MEDS ORDERED: VIBRAMYCIN100 MG PO (14:07)
== END 2023-01-29 14:41 | disposition home or self-care (01) ==
LOC: ED 11:04
PROVIDERS: Nurse Practitioner Family
DX: L84 Corns and callosities (principal); M86.8X7 Other osteomyelitis, ankle and foot; I10 Essential (primary) hypertension; E11.610 Type 2 diabetes mellitus with diabetic neuropathic arthropathy; Z88.1 Allergy status to other antibiotic agents; F17.200 Nicotine dependence, unspecified, uncomplicated; Z88.8 Allergy status to other drugs, medicaments and biological substances; Z79.899 Other long term (current) drug therapy; Z98.51 Tubal ligation status; Z98.890 Other specified postprocedural states; Z90.49 Acquired absence of other specified parts of digestive tract; Z90.89 Acquired absence of other organs

== ENCOUNTER 2023-03-19 14:49 | Emergency (ER) | payer OTHER, MEDICAID ==
[~2023-03-19] VITALS: Ht 165.1 cm; Wt 56.7 kg
[~2023-03-19 14:49] MED LIST changes: +HYDROCODONE-AC1 EAC1 PO
[2023-03-19 15:47] LABS: BASO % 0.5 % (0.0-1.0); EOS % 0.1 % (1.0-4.0); HEMATOCRIT 48.3 % (37.0-47.0); LYMPH # 1.7 10*3/uL (1.3-4.4); LYMPH % 19.9 % (27.0-41.0); MEAN CELL VOLUME 84.1 fl (81.0-99.0); MEAN CORPUSCULAR HGB 27.9 pg (27.0-31.0); MEAN CORPUSCULAR HGB CONC 33.1 g/dl (33.0-37.0); MEAN PLATELET VOLUME 8.7 fl (9.6-12.3); MONO # 0.4 10*3/uL (0.1-1.0); MONO % 5.3 % (3.0-9.0); NEUT # 6.2 10*3/uL (2.3-7.9); NEUT % 73.7 % (47.0-73.0); PLATELET COUNT AUTOMATED 478 10*3/uL (130-400); RED BLOOD COUNT 5.74 10*6/uL (4.10-5.10); RED CELL DISTRI WIDTH 14.8 % (0-14.5); WHITE BLOOD COUNT 8.4 10*3/uL (4.8-10.8)
[2023-03-19] MEDS ORDERED: TRAMADOL HCL50 MG PO (15:56)
== END 2023-03-19 16:04 | disposition home or self-care (01) ==
LOC: ED 14:49
PROVIDERS: Emergency Medicine
DX: M79.671 Pain in right foot (principal); R58 Hemorrhage, not elsewhere classified; E11.40 Type 2 diabetes mellitus with diabetic neuropathy, unspecified; I10 Essential (primary) hypertension; E78.5 Hyperlipidemia, unspecified; F17.200 Nicotine dependence, unspecified, uncomplicated; Z88.1 Allergy status to other antibiotic agents; Z88.8 Allergy status to other drugs, medicaments and biological substances; Z79.2 Long term (current) use of antibiotics; Z79.899 Other long term (current) drug therapy; Z98.51 Tubal ligation status; Z98.890 Other specified postprocedural states; Z90.49 Acquired absence of other specified parts of digestive tract; Z90.89 Acquired absence of other organs

== ENCOUNTER 2023-04-09 16:21 | Emergency (ER) | payer OTHER, MEDICAID ==
[~2023-04-09] VITALS: Ht 167.6 cm; Wt 72.6 kg
== END 2023-04-09 16:45 ==
LOC: ED 16:21
DX: I46.9 Cardiac arrest, cause unspecified (principal); F17.200 Nicotine dependence, unspecified, uncomplicated; Z88.1 Allergy status to other antibiotic agents; Z88.8 Allergy status to other drugs, medicaments and biological substances; Z79.2 Long term (current) use of antibiotics; Z79.899 Other long term (current) drug therapy; Z98.51 Tubal ligation status; Z90.49 Acquired absence of other specified parts of digestive tract; Z90.89 Acquired absence of other organs; Z98.890 Other specified postprocedural states